=== PATIENT | female | born 1965 | race Caucasian/White ===

== ENCOUNTER → 2016-05-26 | Outpatient (CLI) | payer OTHER ==
[2016-05-26 14:34] VITALS: BP 171/84; PULSE 99; RESP 16; TEMP 98
--- NOTE | 2016-05-26 15:25 | P.PN ---
Subjective This is follow-up visit for this patient with a history of severe and chronic low back pain secondary to lumbar degenerative disc disease, and right sacroiliitis, we have done interventional pain management injection, right sacroiliac joint steroid injection x 2 and she continued to have severe low back pain with radiation to the right buttock area, and is currently on pain medications 1-motrin 800 mg every 8 hours 2- [place] 5/325 every 8 hours 3- amitriptyline 25 mg daily at bedtime Patient denies any side effects of the medication, denies excessive drowsiness or sleepiness, denies suicidal ideation, and reports that the current pain medication is NOT helping To control the pain and improve activity of daily living Patient had a new MRI done 10/24/2015 and this showed that patient had bulging disc at the L4 5 and mild disc desiccation Physical Examinations : 1-Constitutiona : Cooperative , not in acute distress . 2-HEENT : nech ; supple , no Lymphadenopathy , no Thyromegaly , normal thyroid size . eyes : no ptosis , no icterus, no photophobia . ENT : normal of hearing , normal oropharynx , no Thrush . 3- Respiratory : Chest clear to auscultations Bilaterally , no wheezing , no Rhonchi . 4- Cardiovascular : regular rate and rhythem , S1 , S2 , no S3 , no S4. 5- Gastrointestinal : abdomen soft no tenderness , bowel sounds positive all four quadrents , no organomegally . 6- Genitourinary : Defferred . 7- neurologic : Cranial nerve II to XII intact , no focal neurological deffecit . 8-psychatric : alert , oriented X 3 , appropriate affect , intact judgment and insight . 9-Lymphatic : no Lymphadenopathy . 10- musculoskeltal : exams of the Lumber spine = motor strength lower extremities ,thigh and legs .5/5 deep tendon reflexes : normal Knee Jerk , normal ankle Jerk . lumber facet Loading Test positive strait leg raising test positive at 30 degree RT Fabere test positive RT and Negative LT . Range of motion: Range of motion in flexion of the lumbar spine 30 degrees Range of motion range of motion of extension of the lumbar spine 10 Sever tenderness over the Sacroiliac joint on the Right , and negative on the Left side Assessment and plan = - Chronic low back pain secondary to lumbar degenerative disc disease , and right sacroiliitis Patient had 2 sacroiliac joint steroid injections without any significant benefit - diagnoses, prognosis, and treatment options including but not limited to physical therapy, surgical interventions, interventional therapies and medication management including narcotics and adjuvant medication were discussed with the patient and all questions answered to the patient's satisfaction. -medication refile = patient getting prescription refill from her primary care , and I wrote a new prescription for Voltaren gel to be applied to the buttock area twice daily -procedure= patient could benefit from lumbar epidural steroid injections which will be done under fluoroscopy guidance , the same time we can toward right sacroiliac joint steroid injection , to maximize the benefit and hopefully patient had the best outcome , procedure and its risk and benefits discussed and explained to the patient and she agreed with the procedure Objective - Vital Signs Vital signs: Vital Signs Temp 98.0 F 05/26/16 14:21 Pulse 99 05/26/16 14:21 Resp 16 05/26/16 14:21 BP 171/84 05/26/16 14:21 Pulse Ox 97 05/26/16 14:21 Intake & Output 05/25/16 05/26/16 05/26/16 18:59 06:59 18:59 Weight 95.708 kg
== END | disposition home or self-care (01) ==
LOC: PNWHC3 14:08
PROVIDERS: ATTEND Specialist
DX: M51.36 Other intervertebral disc degeneration, lumbar region (principal); M46.1 Sacroiliitis, not elsewhere classified; Z79.899 Other long term (current) drug therapy
CPT/HCPCS: 99211

== ENCOUNTER 2016-06-19 12:18 | Day surgery (SDC) | payer OTHER ==
[2016-06-18 13:19] VITALS: BMI 40.0
[~2016-06-19 12:18] MED LIST: LACTATED RINGERS 1,000 ML IV SCH
[2016-06-19 13:22] VITALS: TEMP 97.5
[2016-06-19] MEDS ORDERED: LIDOCAINE 1% 20 ML VIAL (10MG/ML) FOR IV START INTRADERMA ONE (13:34)
[2016-06-19] MEDS ORDERED: IOHEXOL 180 MG/ML 1 ML ML ONE (13:45)
[2016-06-19] MEDS ORDERED: fentaNYL (PF) 50 MCG/ML 2 ML AMP ONE (13:45)
[2016-06-19] MEDS ORDERED: TRIAMCINOLONE ACETONIDE 40 MG/ML 1 ML VIAL ONE (13:45)
[2016-06-19] MEDS ORDERED: MIDAZOLAM 2 MG/2 ML VIAL ONE (13:45)
--- NOTE | 2016-06-19 13:58 | P.PCN ---
Date of Procedure: 06/19/16 Surgeon: Thaddeus Olguin Pathology: none sent Condition: stable Disposition: PACU Description of Procedure: PREOPERATIVE DIAGNOSIS: 1-Lumbar radiculitis. POSTOPERATIVE DIAGNOSIS: 1-Lumbar radiculitis. PROCEDURE 1. Lumbar epidural steroid injection under fluoroscopic guidance at the L4-L5 level. 2. Lumbar epidurogram. ANESTHESIA: Local with 1% lidocaine; IV sedation with Versed/fentanyl. EBL: Minimal PROCEDURE INDICATION: The patient with low back pain and radiculitis symptoms unresponsive to conservative treatment. Fluoroscopy was used to optimize visualization of the needle placement and to maximize safety. No use of blood thinners. PROCEDURE DESCRIPTION / TECHNIQUE: The patient was seen and identified in the preoperative area. Risks, benefits, complications, and alternatives were discussed with the patient, including but not limited to bleeding, infection, nerve damage, allergic reactions to medications, and incomplete pain relief. The patient agreed to proceed with the procedure and signed the consent after all questions were answered. IV was started, and vital signs were stable. Patient was taken to the OR and time out was completed to confirm patient position, procedure, laterality of pain, and allergies. The patient was placed in the prone position on procedure table and a pillow was placed under the abdomen to reduce lumbar lordosis. The lumbosacral area was prepped and draped in the usual sterile fashion. Critical pause was taken. Vital signs were closely monitored during the procedure. Conscious sedation was used during the procedure to decrease patients anxiety. Using anterior-posterior fluoroscopy, the L4-L5 interlaminar space was identified and the skin over this site was marked and then infiltrated with 1% lidocaine subcutaneously. Subsequently, a 20-gauge Tuohy epidural needle was inserted and advanced toward the epidural space using the Loss of resistance technique and guided by AP and lateral fluoroscopy. The correct needle position in the epidural space was verified with the injection of 2 mL of the water soluble contrast dye Omnipaque 300 contrast and observing an excellent epidurogram with the epidural spread of the dye, after negative aspiration for blood and CSF and in the absence of paresthesias. Again after negative aspiration, a 8 ml mixture containing 80 mg of Kenalog and 4 ml of preservative free Normal Saline, and 2 ml of preservative free lidocaine 1% solution was injected and a washout of epidurogram was seen. Needle was withdrawn intact, skin was cleansed, and bandages were applied. COMPLICATIONS: None COMMENTS: DISPOSITION / PLANS: The patient was placed in a supine position and transferred to the recovery area in a stable condition for observation. There was no evidence of lower extremity motor or sensory deficit after the procedure. Patient was discharged from the recovery room after meeting discharge criteria. Home discharge instructions were given to the patient by the staff. The patient was reexamined prior to discharge. The patient will schedule a follow up procedure in 4-6 weeks.
[2016-06-19 14:08] VITALS: RESP 18
--- NOTE | 2016-06-19 14:13 | FL ---
Fluoroscopy INDICATION: Pain FINDINGS: Fluoroscopy time: 5 seconds. Images obtained: 3. IMPRESSIONS: 1. Documentation of fluoroscopy.
[2016-06-19] MEDS ORDERED: IV FLUID CONTINUATION 1,000 ML IV ONE (14:16)
[2016-06-19 14:25] VITALS: BP 130/84; PULSE 78
== END 2016-06-19 14:47 | disposition home or self-care (01) ==
LOC: ORPAIN 12:18
PROVIDERS: ATTEND Anesthesiology
DX: G89.29 Other chronic pain (principal); M54.16 Radiculopathy, lumbar region; F41.9 Anxiety disorder, unspecified; R51 Headache; Z88.8 Allergy status to other drugs, medicaments and biological substances; Z79.1 Long term (current) use of non-steroidal anti-inflammatories (NSAID); Z79.899 Other long term (current) drug therapy
CPT/HCPCS: 62323; J2250; J3301; Q9965; J3010

== ENCOUNTER 2016-07-28 09:01 | Day surgery (SDC) | payer OTHER ==
[2016-07-25 11:42] VITALS: BMI 38.5
[2016-07-28] MEDS ORDERED: LIDOCAINE 1% 20 ML VIAL (10MG/ML) FOR IV START INTRADERMA ONE (09:22)
[2016-07-28 09:28] VITALS: PULSE 69; RESP 16; TEMP 98.3
[2016-07-28] MEDS ORDERED: IOHEXOL 180 MG/ML 1 ML ML ONE (10:04)
[2016-07-28] MEDS ORDERED: BUPIVACAINE (PF) 0.25% 30 ML VIAL ONE (10:04)
[2016-07-28] MEDS ORDERED: MIDAZOLAM 2 MG/2 ML VIAL ONE (10:04)
[2016-07-28] MEDS ORDERED: fentaNYL (PF) 50 MCG/ML 2 ML AMP ONE (10:04)
[2016-07-28] MEDS ORDERED: TRIAMCINOLONE ACETONIDE 40 MG/ML 1 ML VIAL ONE (10:04)
--- NOTE | 2016-07-28 10:22 | P.PCN ---
Date of Procedure: 07/28/16 Preoperative Diagnosis: Right lumbar radiculopathy Postoperative Diagnosis: Same as above Procedure(s) Performed: Lumbar epidural steroid injection under fluoroscopic guidance Anesthesia: MAC Surgeon: Katherine Pedroza Pathology: none sent Condition: stable Disposition: PACU Description of Procedure: The patient was seen in preop holding area consent was obtained then she was brought into the procedure room and placed in prone position. Skin was prepped with Betadine 3 and draped in a sterile manner. Lidocaine 1% was used to numb the skin up at the target point that was at the L4 5 level in the right paramedian approach. I used 20-gauge 3-1/2 inch Touhy epidural needle with loss -of-resistance to air to identify the epidural space. There was positive loss- of-resistance to air at about 8 cm from skin negative aspiration for any CSF or blood negative paresthesia I then injected 1 mL of Omnipaque which showed typical epidurogram on the AP and lateral views of fluoroscopy after that I injected 40 mg of Kenalog plus 2 MLS of Marcaine 0.25% +4 MLS of preservative free normal saline to a total volume of 7 MLS in epidural space. Patient tolerated procedure well. We used 2 milligrams of IV Versed and 100 g of IV fentanyl for sedation.
[2016-07-28] MEDS ORDERED: IV FLUID CONTINUATION 1,000 ML IV ONE (10:34)
--- NOTE | 2016-07-28 10:37 | FL ---
FLUOROSCOPY 4 seconds of fluoroscopy time were utilized during Pain Injection. 2 images document the procedure.
[2016-07-28 10:52] VITALS: BP 109/74
== END 2016-07-28 11:08 | disposition home or self-care (01) ==
LOC: ORPAIN 09:01
PROVIDERS: ATTEND Anesthesiology
DX: M54.16 Radiculopathy, lumbar region (principal); Z88.8 Allergy status to other drugs, medicaments and biological substances
CPT/HCPCS: 62323; 99152; J2250; J3301; Q9965; J3010

== ENCOUNTER 2016-09-04 07:32 | Day surgery (SDC) | payer OTHER ==
[2016-09-03 10:10] VITALS: BMI 39.1
[2016-09-04] MEDS ORDERED: LIDOCAINE 1% 20 ML VIAL (10MG/ML) FOR IV START INTRADERMA ONE (07:50)
[2016-09-04 08:02] VITALS: RESP 16; TEMP 97.3
[2016-09-04] MEDS ORDERED: fentaNYL (PF) 50 MCG/ML 2 ML AMP ONE (08:41)
[2016-09-04] MEDS ORDERED: IOHEXOL 180 MG/ML 1 ML ML ONE (08:41)
[2016-09-04] MEDS ORDERED: MIDAZOLAM 2 MG/2 ML VIAL ONE (08:41)
[2016-09-04] MEDS ORDERED: TRIAMCINOLONE ACETONIDE 40 MG/ML 1 ML VIAL ONE (08:41)
--- NOTE | 2016-09-04 08:57 | P.PCN ---
Date of Procedure: 09/04/16 Procedure(s) Performed: PREOPERATIVE DIAGNOSIS: 1- Lumbar herniated Disc Diseases 2-Lumbar radiculopathy. POSTOPERATIVE DIAGNOSIS: Same as preoperative diagnoses. PROCEDURE 1. Lumbar epidural steroid injection under fluoroscopic guidance at the L4-5 level. 2. Lumbar epidurogram. ANESTHESIA: Local with 1% lidocaine 3 ml and IV sedation with Versed 2 mg , and fentanyle 100 Mcg EBL: Minimal PROCEDURE INDICATION: The patient with low back pain and radiculitis symptoms unresponsive to conservative treatment. Fluoroscopy was used to optimize visualization of the needle placement and to maximize safety. PROCEDURE DESCRIPTION / TECHNIQUE: The patient was seen and identified in the preoperative area. Risks, benefits , complications including but not limited to infections ,bleeding ,allergic reaction to the medications ,nerve damage and not complete pain releife , and alternatives were discussed with the patient. The patient agreed to proceed with the procedure and signed the consent. IV was started, and vital signs were stable. Patient was taken to the OR and time out was completed. The patient was placed in the prone position on procedure table and a pillow was placed under the abdomen to reduce lumbar lordosis. The lumbosacral area was prepped and draped in the usual sterile fashion.ere closely monitored during the procedure. Conscious sedation was used during the procedure to decrease patients anxiety. Vital signs was monitered during the entire procedure. Using anterior-posterior fluoroscopy, the L4-5 interlaminar space was identified and the skin over this site was marked and then infiltrated with 1% lidocaine subcutaneously. Subsequently, a 20-gauge Tuohy epidural needle was inserted and advanced toward the epidural space using the ``Loss of resistance technique and guided by AP and lateral fluoroscopy. The correct needle position in the epidural space was verified with the injection of 2 mL of the water soluble contrast dye Omnipaque 180 contrast and observing an excellent epidurogram with the epidural spread of the dye, after negative aspiration for blood and CSF and in the absence of paresthesias. Again after negative aspiration, a 6 ml mixture containing 80 mg of Kenalog and 2 ml of preservative free Normal Saline, and 2 ml of preservative free lidocaine 1% solution was injected and a washout of epidurogram was seen. Needle was withdrawn intact, skin was cleansed, and bandages were applied. COMPLICATIONS: None DISPOSITION / PLANS: The patient was placed in a supine position and transferred to the recovery area in a stable condition for observation. There was no evidence of lower extremity motor or sensory deficit after the procedure. Patient was discharged from the recovery room after meeting discharge criteria. Home discharge instructions were given to the patient by the staff. The patient was reexamined prior to discharge. The patient will schedule a follow up in the clinic in 2-4 weeks.
[2016-09-04] MEDS ORDERED: IV FLUID CONTINUATION 1,000 ML IV ONE (09:00)
--- NOTE | 2016-09-04 09:02 | FL ---
EXAMINATION TYPE: FL guided pain mgmt statistic DATE OF EXAM: 09/04/2016 8:57 AM HISTORY: Pain LUMBAR EPIDURAL INJECTION, FLUORO TIME 3 SEC, , 1 IMAGE SCANNED
[2016-09-04 09:30] VITALS: BP 110/70; PULSE 67
== END 2016-09-04 09:49 | disposition home or self-care (01) ==
LOC: ORPAIN 07:32
PROVIDERS: ATTEND Specialist
DX: M51.16 Intervertebral disc disorders with radiculopathy, lumbar region (principal); Z88.8 Allergy status to other drugs, medicaments and biological substances
CPT/HCPCS: 62323; J2250; J3301; Q9965; J3010

== ENCOUNTER → 2016-12-09 | Outpatient (CLI) | payer OTHER ==
[2016-12-09 14:20] VITALS: BP 132/73; PULSE 75; RESP 16; TEMP 97.7
--- NOTE | 2016-12-09 14:39 | P.PN ---
Progress Note - Text This is a 51-year-old female with history of axial lower back pain with mild pain in the left lower extremity. The patient failed to get a prolonged relief of her pain after both sacroiliac joint steroid injection and lumbar epidural steroid injection. 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 She uses Tylenol and ibuprofen to help her with the pain and occasionally [place] at night. The pain is starting to affect her daily activities and her work especially she has to constantly change positions to relieve this pain. The patient has lumbar spondylosis without myelopathy and morbid obesity. I will schedule the patient to have lumbar medial branch block under fluoroscopic guidance without steroids. if She gets at least 50% of pain relief for a few hours right after the procedure then we will plan on doing lumbar medial branch radio frequency ablation in the future.
== END ==
LOC: PNWHC3 13:48
PROVIDERS: ATTEND Anesthesiology
DX: M54.5 Low back pain (principal); M79.605 Pain in left leg
CPT/HCPCS: 99211

== ENCOUNTER 2016-12-18 08:27 | Day surgery (SDC) | payer OTHER ==
[2016-12-17 08:53] VITALS: BMI 40.0
[2016-12-18 08:53] VITALS: TEMP 98.1
[2016-12-18] MEDS ORDERED: LIDOCAINE 1% 20 ML VIAL (10MG/ML) FOR IV START INTRADERMA ONE (09:03)
--- NOTE | 2016-12-18 09:39 | P.PCN ---
Date of Procedure: 12/18/16 Preoperative Diagnosis: Lumbar spondylosis without myelopathy Morbid obesity Postoperative Diagnosis: Same as above Procedure(s) Performed: Lumbar bilateral medial branch block under fluoroscopic guidance for levels L4-5 , and L5-S1 Implants: Anesthesia: other (Moderate conscious sedation with IV Versed only) Surgeon: Katherine Pedroza Pathology: none sent Condition: stable Disposition: PACU Indications for Procedure: Operative Findings: Description of Procedure: The patient was seen in preoperative holding area consent was obtained then she was brought into the procedure room and placed in prone position. Skin was prepped with ChloraPrep and draped in a sterile manner. Lidocaine 1% was used to numb the skin up at the target points that were chosen as follows: fot the L5 -S1 level which corresponds to the dorsal ramus of L5 the target points were at the superior medial aspect of the sacral ala on each side of the spine on the AP view of fluoroscopy, and for theL3 and L4 medial branches the target points were at the connection between the transverse process and the superior articular process of L4 and L5 vertebra on the oblique views of fluoroscopy. I Used 22-gauge 7 inch Quincke spinal needles for this procedure and after contacting bone at the target points mentioned above I injected 1 mL of Marcaine 0.5%. No steroids and no IV fentanyl were used for this procedure. Patient tolerated procedure well
--- NOTE | 2016-12-18 09:50 | FL ---
Fluoroscopy HISTORY: Pain 9 seconds fluoroscopy time supplied to the referring clinician. 3 intraoperative C-arm images docume nt the procedure. See dictated report from anesthesia.
[2016-12-18 10:10] VITALS: BP 139/80; PULSE 76; RESP 17
[2016-12-18] MEDS ORDERED: IV FLUID CONTINUATION 1,000 ML IV ONE (10:15)
== END 2016-12-18 10:27 | disposition home or self-care (01) ==
LOC: ORPAIN 08:27
PROVIDERS: ATTEND Anesthesiology
DX: M47.816 Spondylosis without myelopathy or radiculopathy, lumbar region (principal); E66.01 Morbid (severe) obesity due to excess calories; Z68.41 Body mass index [BMI] 40.0-44.9, adult; Z88.8 Allergy status to other drugs, medicaments and biological substances
CPT/HCPCS: 99152; 64493; 64494; J2250

== ENCOUNTER 2017-01-26 06:34 | Day surgery (SDC) | payer OTHER ==
[2017-01-26 06:47] VITALS: RESP 16; TEMP 98.7
[2017-01-26] MEDS ORDERED: LIDOCAINE 1% 20 ML VIAL (10MG/ML) FOR IV START INTRADERMA ONE (06:47)
[2017-01-26] MEDS ORDERED: LACTATED RINGERS 1,000 ML IV ONE (06:48)
[2017-01-26] MEDS ORDERED: LACTATED RINGERS 1,000 ML IV SCH (07:15)
--- NOTE | 2017-01-26 07:56 | FL ---
EXAMINATION TYPE: FL guided pain mgmt statistic DATE OF EXAM: 01/26/2017 HISTORY: Pain 11 SEC FLUORO, 6 IMAGES SCANNED INTO PACS
[2017-01-26 08:31] VITALS: BP 122/80; PULSE 83
--- NOTE | 2017-01-26 09:00 | P.PCN ---
Date of Procedure: 01/26/17 Surgeon: Thaddeus Olguin Pathology: none sent Condition: stable Disposition: PACU Description of Procedure: PREOPERATIVE DIAGNOSIS: L3-L4, L4-L5, and L5-S1 spondylosis without myelopathy and facet arthropathy. POSTOPERATIVE DIAGNOSIS: L3-L4, L4-L5, and L5-S1 spondylosis without myelopathy and facet arthropathy. PROCEDURE DESCRIPTION: Patient presents for L3-L4, L4-L5 and L5-S1 diagnostic medial branch blocks under fluoroscopic guidance. The procedure is performed using fluoroscopic guidance during needle placement to assure proper position and maximize safety. ANESTHESIA: Local with 1% lidocaine; conscious sedation EBL: Minimal PROCEDURE INDICATION: Patient with lumbar facet arthropathy signs and symptoms, here for diagnostic medial branch block. Pt does not take any blood thinning medications. Two weeks' relief from MBB #1 > 50% (done without steroids). PROCEDURE DESCRIPTION: The patient was seen and identified in the preoperative area. Risks, benefits, complications, and alternatives were discussed with the patient (including but not limited to incomplete pain relief, bleeding, infection, nerve damage, and allergies to medications), the patient agreed to proceed with the procedure and signed the consent after all questions were answered. Patient was taken to the OR and time out was completed to verify proper patient, position, laterality of pain, and allergies. Pt was placed in the prone position and a pillow was placed under the abdomen to reduce lumbar lordosis. The lumbosacral area was prepped and draped in the usual sterile fashion. Using oblique fluoroscopy, the eye of the "Donnell dog" of right L4 vertebral body, which corresponds to the path of the medial branch originating from the level above, which is L3 in this case, was identified. Subsequently, a 22-gauge 3.5-inch spinal needle was inserted under fluoroscopic guidance toward the eye of the "Donnell dog" of the right L4 vertebral body, corresponding to the junction of the superior articular process and the transverse process of the pedicle of the same level. After needle tip confirmation on lateral view and after negative aspiration for CSF and blood and without paresthesias, 1 mL of a 6 ml solution of 0.5% preservative-free bupivacaine and 40 mg Kenalog was injected. Subsequently the needle was withdrawn intact and the same procedure was repeated for the right L4, right L5, left L3, left L4, and left L5 medial branches which together with right L3 medial branch correspond to the sensory innervation of the bilateral L3-L4, L4-L5, and L5-S1 facet joints. Needle was withdrawn intact after each injection. At the end of the procedure, the skin was cleansed and bandages were applied. COMPLICATIONS: None. DISPOSITION/PLAN: The patient taken to the recovery area after the procedure in a stable condition for observation. Patient was reexamined prior to discharge and there were no issues. Patient was discharged home, accompanied by an adult, after meeting discharged criteria. Discharge instructions were give to the patient by the staff. Patient was specifically instructed not to drive today and to rest for the rest of the day. Right lumbar RFA next.
== END 2017-01-26 08:41 | disposition home or self-care (01) ==
LOC: ORPAIN 06:34
PROVIDERS: ATTEND Anesthesiology
DX: G89.29 Other chronic pain (principal); M47.816 Spondylosis without myelopathy or radiculopathy, lumbar region; M47.817 Spondylosis without myelopathy or radiculopathy, lumbosacral region; M46.96 Unspecified inflammatory spondylopathy, lumbar region; I10 Essential (primary) hypertension; Z88.8 Allergy status to other drugs, medicaments and biological substances; Z79.1 Long term (current) use of non-steroidal anti-inflammatories (NSAID); Z79.899 Other long term (current) drug therapy
CPT/HCPCS: 64493; 64494; 64495; 99152; J2250; J3301

== ENCOUNTER 2017-02-19 06:31 | Day surgery (SDC) | payer OTHER ==
[2017-02-16 14:40] VITALS: BMI 38.9
[2017-02-19 07:18] VITALS: RESP 16; TEMP 97
[2017-02-19] MEDS ORDERED: LIDOCAINE 1% 20 ML VIAL (10MG/ML) FOR IV START INTRADERMA ONE (07:22)
--- NOTE | 2017-02-19 08:03 | P.PCN ---
Date of Procedure: 02/19/17 Procedure(s) Performed: PREOPERATIVE DIAGNOSIS: 1-Lumbar Spondylosis with Facet Arthropathy without myelopathy. POSTOPERATIVE DIAGNOSIS: 1- Lumbar Spondylosis with Facet Arthropathy without myelopathy. PROCEDURES : Right Radiofrequency thermocoagulation, L3-L4, L4-L5, and L5-S1 medial branch, with fluoroscopic guidance ANESTHESIA: IV sedation with versed 2 mg and fentaneyl 100 mcg and local infiltration with lidocaine 1% 6 ml EBL: Minimal PROCEDURE INDICATION: The patient with low back pain secondary to lumbar facet arthropathy who had more than 50% relief of her pain with previous diagnostic lumbar medial branch block with bupivacaine. PROCEDURE DESCRIPTION / TECHNIQUE: The patient was seen and identified in the preoperative area. Risks, benefits, complications, including but not limited to risk of infection ,bleeding , allergic reactions to the medications and no complete pain releife , and alternatives were discussed with the patient, the patient agreed to proceed with the procedure and signed the consent. IV was started. Vital signs remained stable throughout the procedure. Patient was taken to the OR and time out was completed. The patient was placed in the prone position on the procedure table. The lumber area was prepped and draped in the usual sterile fashion. . Vital signs were closely monitored during the procedure .IV sedation was used during the procedure to decrease patients anxiety. Using AP and then oblique fluoroscopy, the ``eye of the Donnell dog corresponding to the connection between the superior and transverse articular processes of right L3, L4, and L5 were identified, marked, and localized with 1 % lidocaine. Subsequently, a 18 -hc radiofrequency cannula with a 10- mm active tip was advanced guided by fluoroscopy to each of the ``eyes of the Donnell dog at right L3, L4, and L5. Each site then underwent sensory testing at 50 Hz and 0 to 1 volt and motor testing at 2.5 Hz and 0 to 3 volt with local stimulation, but no radicular symptoms down the legs. Thereafter the right L3-4, L4-5, and L5-S1 sites underwent radiofrequency thermocoagulation at 80 degrees celsius for 90 seconds after injecting 0.5 ml of PF lidocaine 1%. then After the thermocoagulation done , 1 ml of the block solution containing Kenalog 40 mg and 3 ml of marain 0.5% was injected at the right L3- 4 , L4-5 , and L5-S1, levels after negative aspiration of CSF and blood and with no paresthesias. Cannulas were retracted while injecting lidocaine 1% until the needle is out. At the end of the procedure, the skin was cleansed and bandages were applied. COMPLICATIONS: No acute complications. DISPOSITION / PLANS: The patient was placed in a supine position and transferred to the recovery area in a stable condition for observation and was discharged from the recovery room after meeting discharge criteria. Home discharge instructions given to the patient by the staff. The patient was reexamined prior to discharge. The patient will schedule a follow up in the clinic in 2-4 weeks.
[2017-02-19 08:13] VITALS: PULSE 75
[2017-02-19] MEDS ORDERED: IV FLUID CONTINUATION 1,000 ML IV ONE (08:14)
[2017-02-19 08:24] VITALS: BP 130/93
--- NOTE | 2017-02-19 08:51 | FL ---
Fluoroscopy INDICATION: Pain FINDINGS: Fluoroscopy time: 18 seconds. Images obtained: 3. IMPRESSIONS: 1. Documentation of fluoroscopy.
== END 2017-02-19 08:55 | disposition home or self-care (01) ==
LOC: ORPAIN 06:31
PROVIDERS: ATTEND Specialist
DX: M47.816 Spondylosis without myelopathy or radiculopathy, lumbar region (principal); M46.96 Unspecified inflammatory spondylopathy, lumbar region; I10 Essential (primary) hypertension; Z88.8 Allergy status to other drugs, medicaments and biological substances
CPT/HCPCS: 64635; 64636 ×2; J2250; J3301; J3010; 99152; 99153

== ENCOUNTER → 2017-05-06 | Outpatient (CLI) | payer OTHER ==
--- NOTE | 2017-05-06 23:18 | MR ---
EXAMINATION TYPE: MR lumbar spine wo con DATE OF EXAM: 05/06/2017 COMPARISON: 10/24/2015 HISTORY: low back pain with numbness in left leg, prev. MRI on PACS TECHNIQUE: Multiplanar, multisequence images of the lumbar spine were acquired. The lumbar vertebra have normal alignment. There is slight decreased signal in the disc at L4-5. Ther e is no significant disc space narrowing. There is no compression fracture. The neural foramina are f airly well-maintained. The posterior elements are intact. Sacroiliac joints appear intact. There is n o paraspinal mass. There is no spinal stenosis. There is some hypertrophic facet arthropathy at L4-5 with fluid in the facet joints. There is some mild lateral recess stenosis at L4-5. IMPRESSION: There is mild facet arthropathy at L4-5 with mild lateral recess stenosis that has progressed slightl y compared to old MR scan. No spinal stenosis. No lumbar disc herniation.
== END ==
LOC: RADMRIMAIN 20:38
PROVIDERS: ATTEND Anesthesiology
DX: M48.061 Spinal stenosis, lumbar region without neurogenic claudication (principal); M46.86 Other specified inflammatory spondylopathies, lumbar region
CPT/HCPCS: 72148

== ENCOUNTER → 2017-05-07 | Day surgery (SDC) | payer OTHER ==
[2017-03-24 08:28] VITALS: BMI 39.4
[~2017-05-07] MED LIST changes: +IV FLUID CONTINUATION 200 ML IV ONE; +LACTATED RINGERS 1,000 ML IV ONE; +LIDOCAINE 1% 20 ML VIAL (10MG/ML) FOR IV START INTRADERMA ONE
--- NOTE | 2017-05-07 11:30 | P.PCN ---
Date of Procedure: 05/07/17 Procedure(s) Performed: PREOPERATIVE DIAGNOSIS: 1-Lumbar Spondylosis with Facet Arthropathy without myelopathy. 2- Lumber degenerative disc disease POSTOPERATIVE DIAGNOSIS: 1- Lumbar Spondylosis with Facet Arthropathy without myelopathy. 2- Lumber degenerative disc disease PROCEDURES : Left Radiofrequency thermocoagulation, L3-L4, L4-L5, and L5-S1 medial branch, with fluoroscopic guidance ANESTHESIA: Moderate sedation with intravenous versed 2 mg and fentaneyl 50 mcg and local infiltration with lidocaine 1% 3 ml EBL: Minimal PROCEDURE INDICATION: The patient with low back pain secondary to lumbar facet arthropathy who had more than 50% relief of her pain with previous diagnostic lumbar medial branch block with bupivacaine. PROCEDURE DESCRIPTION / TECHNIQUE: The patient was seen and identified in the preoperative area. Risks, benefits, complications, including but not limited to risk of infection ,bleeding , allergic reactions to the medications and no complete pain releife , and alternatives were discussed with the patient, the patient agreed to proceed with the procedure and signed the consent. IV was started. Vital signs remained stable throughout the procedure. Patient was taken to the OR and time out was completed. The patient was placed in the prone position on the procedure table. The lumber area was prepped and draped in the usual sterile fashion. . Vital signs were closely monitored during the procedure .IV sedation was used during the procedure to decrease patients anxiety. Using AP and then oblique fluoroscopy, the ``eye of the Donnell dog corresponding to the connection between the superior and transverse articular processes of left L3, L4, and L5 were identified, marked, and localized with 1 % lidocaine. Subsequently, a [id number] radiofrequency cannula with a 10- mm active tip was advanced guided by fluoroscopy to each of the ``eyes of the Donnell dog at left L3, L4, and L5. Each site then underwent sensory testing at 50 Hz and 0 to 1 volt and motor testing at 2.5 Hz and 0 to 3 volt with local stimulation, but no radicular symptoms down the legs. Thereafter the left L3-4, L4-5, and L5-S1 sites underwent radiofrequency thermocoagulation at 80 degrees celsius for 90 seconds after injecting 0.5 ml of PF lidocaine 1%. then After the thermocoagulation done , 1 ml of the block solution containing Kenalog 40 mg and 3 ml of marain 0.5% was injected at the left L3-4 , L4-5 , and L5-S1, levels after negative aspiration of CSF and blood and with no paresthesias. Cannulas were retracted while injecting lidocaine 1% until the needle is out. At the end of the procedure, the skin was cleansed and bandages were applied. COMPLICATIONS: No acute complications. DISPOSITION / PLANS: The patient was placed in a supine position and transferred to the recovery area in a stable condition for observation and was discharged from the recovery room after meeting discharge criteria. Home discharge instructions given to the patient by the staff. The patient was reexamined prior to discharge. The patient will schedule a follow up in the clinic in 2-4 weeks.
--- NOTE | 2017-05-07 11:49 | FL ---
EXAMINATION TYPE: FL guided pain mgmt statistic DATE OF EXAM: 05/07/2017 COMPARISON: NONE HISTORY: Back pain TECHNIQUE: Fluoroscopy. FINDINGS/IMPRESSION: Fluoroscopic guidance was provided during procedure performed by Dr. Nixon. A total of 10 seconds of fluoroscopic time was utilized during the procedure and 3 spot images was a cquired demonstrating localization at multiple lumbar vertebral levels.
[2017-05-07 16:33] VITALS: BP 130/84; PULSE 68; RESP 18; TEMP 98.1
== END | disposition home or self-care (01) ==
LOC: ORPAIN 09:07
PROVIDERS: ATTEND Specialist
DX: M51.36 Other intervertebral disc degeneration, lumbar region (principal); M47.816 Spondylosis without myelopathy or radiculopathy, lumbar region; M46.96 Unspecified inflammatory spondylopathy, lumbar region; Z88.8 Allergy status to other drugs, medicaments and biological substances; Z86.79 Personal history of other diseases of the circulatory system
CPT/HCPCS: 64635; 64636 ×2; J2250; J1100; J3010; 99152

== ENCOUNTER → 2017-05-28 | Outpatient (CLI) | payer OTHER ==
[2017-05-28 11:53] VITALS: BP 140/94; PULSE 83; RESP 18
--- NOTE | 2017-05-28 12:31 | P.PN ---
Progress Note - Text Progress Note Date: 05/28/17 Patient returns for followup for chronic back pain with radiation to the legs. Patient recently underwent bilateral lumbar RFA, which gave her relief only for 2-3 months on the right and the left has not helped her significantly whatsoever. Patient continues on Motrin and Tylenol arthritis medications for pain with good relief. Patient denies adverse drug effects from medications. Today, pt denies new-onset weakness, bowel/bladder incontinence, or any other signs or symptoms of cauda equina syndrome. There are no signs of acute intoxication, and no indications of medication diversion or overuse. In addition to above, 13-point review of systems is also negative for chest pain , shortness of breath, changes in vision, changes in hearing, new onset weakness , abdominal pain, diarrhea, extreme fatigue, malaise, fever, skin changes, homicidal or suicidal ideation, or bowel or bladder incontinence. Vital Signs: Reviewed in EMR Gen: WDWN, AAOx3, NAD HEENT: NCAT, EOMI, hearing grossly normal Pulm: resp unlabored Abd: soft, NT, ND Neck: supple, trachea midline ROM in flexion lumbar spine: reduced ROM in extension lumbar spine: reduced Lumbar paravertebral tenderness: + Facet loading: + bilateral, L > R SI joint tenderness: + R > L Riaz's test: + R > L Straight leg raise: + LLE at 15 degrees Neuro: CN II-XII grossly intact, muscle strength lower extremities PRESERVED Imaging: Reviewed in EMR Assessment: 1. lumbar radiculitis 2. lumbar spondylosis without myelopathy 3. chronic pain syndrome Plan: 1. Explanation: Opioid and psychological risk scores were reviewed. Diagnoses , prognoses, and multiple treatment options including but not limited to physical therapy, interventional therapies, adjuvant medical therapies, narcotic medication therapies, and surgery were discussed with the patient and all questions were answered to the patient's satisfaction. 2. Opioid agreement: Patient has previously signed narcotic agreement, and was orally counseled to not overuse, abuse, divert, or cell medications, and to take them as prescribed by only 1 healthcare provider. The patient was also counseled to store opioid medications in a safe and preferably locked location. Patient was also counseled against driving or operating heavy equipment while using narcotic medications and also to not use alcohol or any illicit or recreational drugs. The patient verbalized understanding that lack of compliance with any of the above and likely result in failure to renew narcotic prescriptions, possible discharge from the clinic, and possible legal ramifications thereafter if indicated. 3. Counseling: The patient was counseled extensively on BODY MASS INDEX, EXERCISE. Specifically, the patient was instructed regarding the importance of weight control, and exercise in the context of both chronic pain and overall health. 4. Procedures: none for now, patient to consider SCS trial 5. Consultations: None 6. Investigations: None 7. Medications: none prescribed 8. Disposition: f/u for re-eval in 6 weeks after visit with Dr. Arias
== END | disposition home or self-care (01) ==
LOC: PNWHC3 11:33
PROVIDERS: ATTEND Anesthesiology
DX: G89.4 Chronic pain syndrome (principal); M54.9 Dorsalgia, unspecified; M47.26 Other spondylosis with radiculopathy, lumbar region; Z79.1 Long term (current) use of non-steroidal anti-inflammatories (NSAID); Z79.891 Long term (current) use of opiate analgesic
CPT/HCPCS: 99211

== ENCOUNTER → 2018-01-25 | Outpatient (CLI) | payer OTHER ==
[2018-01-25 16:44] LABS: Basophils # (A) 0.1 k/uL (0-0.2); Basophils % (A) 1 %; Eosinophils # (A) 0.2 k/uL (0-0.7); Eosinophils % (A) 3 %; HCT 43.6 % (34.0-46.0); HGB 14.3 gm/dL (11.4-16.0); Lymphocytes # (A) 2.1 k/uL (1.0-4.8); Lymphocytes % (A) 31 %; MCH 27.7 pg (25.0-35.0); MCHC 32.8 g/dL (31.0-37.0); MCV 84.5 fL (80.0-100.0); Mean Platelet Volume 6.7; Monocytes # (A) 0.4 k/uL (0-1.0); Monocytes % (A) 6 %; Neutrophils # (A) 3.8 k/uL (1.3-7.7); Neutrophils % (A) 56 %; Platelet Count 388 k/uL (150-450); RBC 5.16 m/uL (3.80-5.40); RDW 14.6 % (11.5-15.5); WBC 6.8 k/uL (3.8-10.6)
[2018-01-25 16:59] LABS: Amorphous Sediment,Urine Rare /hpf; Appearance,Urine Cloudy (Clear); Bacteria,Urine Rare /hpf; Bilirubin,Urine Negative (Negative); Blood,Urine Negative (Negative); Color,Urine Yellow; Glucose,Urine (UA) Negative (Negative); Ketones,Urine Negative (Negative); Leukocyte Esterase,Urine Negative (Negative); Nitrite,Urine Negative (Negative); Protein,Urine Negative (Negative); Specific Gravity,Urine 1.018 (1.001-1.035); Urobilinogen,Urine <2.0 mg/dL (<2.0); WBC,Urine 1 /hpf (0-5)
== END | disposition home or self-care (01) ==
LOC: LABWHC1 15:50
PROVIDERS: ATTEND Nurse Practitioner Family
DX: R19.7 Diarrhea, unspecified (principal)
CPT/HCPCS: 36415; 81001; 85025; 87045; 87046; 87324

== ENCOUNTER 2018-03-08 09:55 | Day surgery (SDC) | payer OTHER ==
[2018-03-03 12:50] VITALS: BMI 39.6
[~2018-03-08 09:55] MED LIST changes: -IV FLUID CONTINUATION 200 ML IV ONE; -LACTATED RINGERS 1,000 ML IV ONE; -LIDOCAINE 1% 20 ML VIAL (10MG/ML) FOR IV START INTRADERMA ONE; +LIDOCAINE 1% 20 ML VIAL (10MG/ML) FOR IV START INTRADERMA PRN
[2018-03-08 10:31] VITALS: RESP 16; TEMP 98.6
[2018-03-08] MEDS ORDERED: PROPOFOL 10 MG/ML 20 ML VIAL IV ONE (11:27)
--- NOTE | 2018-03-08 12:00 | P.PCN ---
Date of Procedure: 03/08/18 Procedure(s) Performed: Procedure: Colonoscopy and biopsy. Preoperative diagnosis: Chronic diarrhea. Postoperative diagnosis: 1. Diffuse diverticulosis with no evidence of acute diverticulitis, strictures, polyps, cancer or colitis. 2. Biopsies obtained from the right colon to rule out microscopic colitis. Preparation: HalfLytely prep. Sedation: Was provided by anesthesia. Brief clinical history: The patient is a 52-year-old female who is scheduled for this evaluation because of chronic diarrhea since the spring of this year. There is family history of polyps in her mother as well as history of colitis in her mother and history of colon cancer in her maternal grandmother. Prior to that, the patient used to have alternating constipation and diarrhea but is now having consistently diarrhea since September of this year. Procedure: With the patient on her left lateral decubitus position and after informed consent and adequate sedation, the perianal area was inspected and it did not show any fissures or fistulas. There were no masses felt on digital rectal examination. The Olympus CFQ 160L video colonoscope was then inserted in the rectum in the usual fashion and advanced to the cecum. I was not able to intubate the ileocecal valve to examine the terminal ileum. The colon appeared healthy with no edema, erythema, friability, ulceration, exudation or spontaneous bleeding. No polyps or tumors were seen. Significant diverticular disease was noted along the length of the bowel with no evidence of acute diverticulitis or strictures. I obtained biopsies from the right colon then I retroflexed the endoscope in the rectum before the endoscope was withdrawn. The patient tolerated the procedure well. Plan: The patient was reassured. Discussed dietary measures and symptomatic treatment. Will await biopsy results and make further recommendations. She will follow-up with you as planned and I would be happy to see in the office if her symptoms persist.
[2018-03-08 12:23] VITALS: BP 143/78; PULSE 75
== END 2018-03-08 12:44 | disposition home or self-care (01) ==
LOC: ORWHC2ENDO 09:55
DX: K57.30 Diverticulosis of large intestine without perforation or abscess without bleeding (principal); Z80.0 Family history of malignant neoplasm of digestive organs; Z83.71 Family history of colonic polyps; Z83.79 Family history of other diseases of the digestive system; I48.91 Unspecified atrial fibrillation; M54.9 Dorsalgia, unspecified; G43.909 Migraine, unspecified, not intractable, without status migrainosus; Z79.899 Other long term (current) drug therapy; Z88.8 Allergy status to other drugs, medicaments and biological substances
CPT/HCPCS: 88305; 45380; J2704

== ENCOUNTER → 2018-09-02 | Outpatient (CLI) | payer OTHER ==
--- NOTE | 2018-09-02 11:56 | BD ---
EXAMINATION TYPE: Axial Bone Density DATE OF EXAM: 09/02/2018 CLINICAL HISTORY: Postmenopausal female. Osteoporosis screening. Height: 61.5 Weight: 199 FRAX RISK QUESTIONS: Alcohol (3 or more units per day): no Family History (Parent hip fracture): no Glucocorticoids (More than 3mos): no (Ex: prednisone, prednisolone, methylprednisolone, dexamethasone, and hydrocortisone). History of Fracture in Adulthood: no Secondary Osteoporosis: 1. Type 1 Diabetes: no 2. Hyperthyroidism: no 3. Menopause before 45: YES 4. Malnutrition: no 5. Chronic liver disease: no Rheumatoid Arthritis: no Current Tobacco Use: no RISK FACTORS HISTORY OF: Surgery to Spine: yes, lower back When: September 2017 Family History of Osteoporosis: no Active: yes Diet low in dairy products/other sources of calcium: no Postmenopausal woman: yes Take estrogen and/or progesterone medications: Bio-Identical with Testosterone-one shot How long: history of hormonal contraceptives about 16 years Lost more than 2 inches in height since high school: no Frequent falls: no Poor Health: no Hyperparathyroidism: no Adrenal Insufficiency: no MEDICATIONS: Prednisone or other steroids: no Thyroid Medications: no Osteoporosis Medications:no Additional Medications: blood pressure med for irregular heartbeat Additional History: lower back injections under fluoroscopy, back surgery EXAM MEASUREMENTS: Bone mineral densitometry was performed using the [employer] System. Bone mineral density NOT measured about the Lumbar spine because of lower back surgery Bone mineral density about the R hip (g/cm2): 1.100 Bone mineral density about the L hip (g/cm2): 1.042 T Score values are as follows: -----R Neck: 0.4 -----L Neck: 0.0 -----R Total: 1.1 -----L Total: 1.4 Bone mineral density BASELINE Bone mineral density about the L Wrist (g/cm2): 0.713 T Score values are as follows: -----Dist. R+U: 1.1 -----Prox. R+U: 0.2 -----Radius total: 0.6 Bone mineral density BASELINE IMPRESSION: Normal (Values between +1 and -1 indicate normal bone mass). Consider repeating this study in 5 year s or sooner if there is some new clinical indication. NOTE: T-SCORE=SD OF THE YOUNG ADULT MEAN.
--- NOTE | 2018-09-03 12:31 | MM ---
Reason for exam: screening (asymptomatic). Last mammogram was performed 7 years and 10 months ago. History: Patient is postmenopausal. Family history of premenopausal breast cancer in sister, breast cancer in mother, breast cancer in maternal aunt at age 39, and breast cancer in paternal aunt at age 3. Excisional biopsy of the left breast. Took hormonal contraceptives for 16 years. Taking other hormone. Physical Findings: A clinical breast exam by your physician is recommended on an annual basis and results should be correlated with mammographic findings. MG Screening Mammo w CAD Bilateral CC and MLO view(s) were taken. Prior study comparison: November 12, 2010, CAD bilateral diagnostic mammogram. February 25, 2010, left breast digital mammogram. The breast tissue is heterogeneously dense. This may lower the sensitivity of mammography. There is no discrete abnormality. No significant changes when compared with prior studies. ASSESSMENT: Negative, BI-RAD 1 RECOMMENDATION: Routine screening mammogram of both breasts in 1 year.
== END | disposition home or self-care (01) ==
LOC: RADMAMWWP 07:28
PROVIDERS: ATTEND Obstetrics & Gynecology
DX: Z12.31 Encounter for screening mammogram for malignant neoplasm of breast (principal); Z13.820 Encounter for screening for osteoporosis; Z78.0 Asymptomatic menopausal state; Z80.3 Family history of malignant neoplasm of breast
CPT/HCPCS: 77067; 77080

== ENCOUNTER → 2019-03-25 | Outpatient (CLI) | payer OTHER ==
--- NOTE | 2019-03-25 14:08 | XR ---
EXAMINATION TYPE: XR lumbosacral spine min 4V DATE OF EXAM: 03/25/2019 CLINICAL HISTORY: pain COMPARISON: NONE TECHNIQUE: Frontal, lateral, and oblique images of the lumbar spine are obtained. FINDINGS: Postoperative changes of lumbar fusion at L4-[address] ped[address]. Remaining le vels are within normal limits. Alignment is anatomic. No fracture or dislocation. IMPRESSION: Postoperative changes L4-5.
== END | disposition home or self-care (01) ==
LOC: RADXRMAIN 13:45
PROVIDERS: ATTEND Family Medicine
DX: M54.5 Low back pain (principal); Z98.890 Other specified postprocedural states
CPT/HCPCS: 72110

== ENCOUNTER → 2019-07-04 | Outpatient (CLI) | payer OTHER ==
[2019-07-04 12:11] VITALS: BP 137/90; PULSE 73; RESP 16
--- NOTE | 2019-07-05 13:12 | P.PAINPG ---
Subjective Progress Note Date: 07/04/19 Patient returns for followup for chronic back pain with radiation to the legs. She was last seen in our clinic in May 2017, at which point she was going to follow-up with Dr. Arias. She underwent lumbar fusion at L4-[address] Arias in September 2017. She reports that the surgery helped her leg numbness as well as low back pain. She has undergone procedures with our clinic in the past, last in 2017 and she underwent bilateral lumbar RFA, which gave her relief only for 2-3 months on the right and the left did not help her significantly. Today, her primary pain complaint is located in the right low back with radiation to right buttocks, it does not extend into the lower extremity. This pain started approximately 6 months ago, with no inciting event. She has followed up with Dr. Arias who informed her that if her pain is most likely SI joint related, and recommended follow-up in pain clinic. 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 She has tried chiropractic therapy and physical therapy with no significant benefit. Patient continues on tramadol and ibuprofen for pain with no significant relief. Patient denies adverse drug effects from medications. Today, pt denies new- onset weakness, bowel/bladder incontinence, or any other signs or symptoms of cauda equina syndrome. There are no signs of acute intoxication, and no indications of medication diversion or overuse. In addition to above, 13-point review of systems is also negative for chest pain, shortness of breath, changes in vision, changes in hearing, new onset weakness, abdominal pain, diarrhea, extreme fatigue, malaise, fever, skin changes, homicidal or suicidal ideation, or bowel or bladder incontinence. Physical exam: Vitals: Reviewed in EMR GENERAL: Well appearing, in no acute distress PSYCH: Mood and affect is appropriate. Awake, alert, and oriented SKIN: Skin color, texture, turgor normal, no rashes or lesions HEENT: Normocephalic, atraumatic. EOM intact CV: No pedal edema RESP: Respirations are unlabored, no audible wheezing GI: Abdomen non-distended MUSCULOSKELETAL: Bilateral lower extremity strength is normal and symmetric. No atrophy or tone abnormalities are noted. Lumbar spine: Straight leg raising in the sitting position is negative for radicular pain. No pain to palpation over the lumbar spine and paraspinous muscles. Negative for pain with facet loading and back extension/rotation. Lumbar scar well healed. Buttocks: Tenderness to palpation over the right PSIS, right sided Alma Rosa's test positive, right sacral thrust positive, right Gaenslen's test positive. Extremities: Peripheral joint ROM is full and pain free without obvious instability or laxity in all four extremities. No edema or skin discolorations noted. Gait: Gait is normal NEUR: Bilateral lower extremity coordination and muscle stretch reflexes are physiologic and symmetric. Negative clonus bilaterally. No loss of sensation is noted. Imaging: Lumbar spine x-rays which show L4-5 fusion with pedicle screws. Assessment: 1. Right SI joint dysfunction 2. Status post lumbar spinal fusion at L4-5 Plan: 1. Explanation: Diagnoses, prognoses, and multiple treatment options including but not limited to physical therapy, interventional therapies, adjuvant medical therapies, and surgery were discussed with the patient and all questions were answered to the patient's satisfaction. 2. Opioid agreement: None 3. Counseling: The patient was counseled extensively on BODY MASS INDEX, EXERCISE. Specifically, the patient was instructed regarding the importance of weight control, and exercise in the context of both chronic pain and overall health. 4. Procedures: We will schedule right SI joint injection 5. Consultations: None 6. Investigations: None 7. Medications: none prescribed 8. Disposition: For above-mentioned procedure PQRS Measure Charge Sheet Measure #130: Documentation of Current Meds in Medical Chart: Patient's medications documented in chart Measure #226: Tobacco Use: Screen & Cessation Intervention: Pt not a tobacco user Measure #111: Pneumonia Vaccination: Pneumococcal vaccine NOT administered or previously given Measure #47: Advance Care Plan: Advance care planning discussed & documented, pt chose/unable to give Measure #412: Opioid Treatment Agreement: No documentation of signed opioid treatment agreement Measure #408: Opioid Therapy Follow-up Evaluation: Patient had NO f/u eval minimum every 3 months during opioid therapy Measure #317: Preventitive Care & Scrn High Bld Press & F/U: Pre-hypertensive or hypertensive BP documented, pt will f/u with PCP Measure #128: Body Mass Index (BMI) Screening & Follow-up: BMI documented ABOVE normal parameters - f/u documented Measure #131: Pain Assessment & Follow-up: Pain positive & plan documented, Follow-up scheduled Measure #431: Unhealthy Alcohol Use Preventative Care & Scrn: Patient not identified as an unhealthy alcohol user PQRS Narrative: Smoking Status Never smoker Hx Alcohol Use (MH) No Home Medications: Ambulatory Orders Amitriptyline HCl 25 mg PO HS 06/28/15 Loratadine [Claritin] 10 mg PO HS 06/28/15 Propranolol HCl [Propranolol HCl ER] 160 mg PO HS 06/28/15 Acetaminophen [Tylenol Arthritis] 650 mg PO BID 12/09/16 Cyclobenzaprine [Flexeril] 10 mg PO HS 12/09/16 Ibuprofen [Motrin] 800 mg PO TID 07/04/19 tiZANidine HCL [Zanaflex] 4 mg PO TID 07/04/19 traMADol HCL 50 mg PO HS 07/04/19 Controlled Substance Measures - Controlled Substance Measures Is patient prescribed a controlled substance at discharge?: No
== END | disposition home or self-care (01) ==
LOC: PNWHC3 11:15
PROVIDERS: ATTEND Anesthesiology
DX: G89.29 Other chronic pain (principal); M53.3 Sacrococcygeal disorders, not elsewhere classified; Z98.1 Arthrodesis status; Z98.890 Other specified postprocedural states; Z79.1 Long term (current) use of non-steroidal anti-inflammatories (NSAID); Z79.891 Long term (current) use of opiate analgesic; Z79.899 Other long term (current) drug therapy
CPT/HCPCS: 99211

== ENCOUNTER 2019-10-25 08:49 | Day surgery (SDC) | payer OTHER ==
[2019-10-24 09:14] VITALS: BMI 35.9
[~2019-10-25 08:49] MED LIST changes: -LIDOCAINE 1% 20 ML VIAL (10MG/ML) FOR IV START INTRADERMA PRN
[2019-10-25 09:06] VITALS: TEMP 98
[2019-10-25] MEDS ORDERED: LIDOCAINE 1% (10MG/ML) FOR IV START INTRADERMA ONE (09:09)
[2019-10-25] MEDS ORDERED: methylPREDNISolone ACETATE 40 MG/ML 1 ML VIAL ONE (09:37)
[2019-10-25] MEDS ORDERED: ROPIVACAINE 5MG/ML 20ML VIAL ONE (09:37)
[2019-10-25] MEDS ORDERED: MIDAZOLAM 2 MG/2 ML VIAL ONE (09:37)
[2019-10-25] MEDS ORDERED: fentaNYL (PF) 50 MCG/ML 2 ML AMP ONE (09:37)
--- NOTE | 2019-10-25 09:52 | P.PCN ---
Date of Procedure: 10/25/19 Procedure(s) Performed: Procedure= Right sacroiliac joints steroid injection under fluoroscopy guidance (fluoroscopy image stored on file in the radiology Department ) Preoperative diagnosis= 1-right sacroiliitis 2-right sacroiliac joint dysfunction Postoperative diagnosis=Same as preop Diagnosis . Complication = none Condition= stable Anesthesia= moderate sedation with intravenous Versed 2 mg , and fentanyl 50 micrograms . Indication for the procedure= patient complaining of low back pain , examination was positive for severe tenderness over the sacroiliac joints bilaterally and patient diagnosed with sacroiliitis, for this reason she was good candidate for sacroiliac joint steroid injection. Description of the procedure= procedure risk and benefits discussed with the patient, including but not limited, risk of infection and bleeding, and ALLERGIC reaction to the medication and not complete pain relief and patient agreed with the preceding patient taken to the operating room, placed in prone position or standard monitors applied to the patient then after induction of anesthesia back prepped with chlorhexidine 3 times , Then under strict sterile technique, first I did the right sacroiliac joint the which was identified under fluoroscopy guidance been local infiltration of the skin and subcu interstitial with lidocaine 1% then 22-gauge Quincke Needle advanced slowly under fluoroscopy and placed in the right sacroiliac joint needle placement confirmed with AP and oblique and lateral view and after appropriate needle placement confirmed and after negative aspiration, or heme , then Ropivacaine 0.5% 4 mL, and 40 mg of Depo-Medrol mixed together and injected in the right sacroiliac joint after negative aspiration patient tolerated the procedure well without any complication.
[2019-10-25] MEDS ORDERED: LACTATED RINGERS 1,000 ML IV ONE (09:54)
[2019-10-25] MEDS ORDERED: IV FLUID CONTINUATION 775 ML IV ONE (09:54)
[2019-10-25 09:57] VITALS: RESP 17
[2019-10-25 10:01] VITALS: BP 111/74; PULSE 71
--- NOTE | 2019-10-25 10:11 | FL ---
EXAMINATION TYPE: FL guided pain mgmt statistic DATE OF EXAM: 10/25/2019 CLINICAL HISTORY: Sacroiliac joint pain. TECHNIQUE: Fluoroscopy. COMPARISON: None. FINDINGS: Fluoroscopic guidance was provided during pain relief procedure performed by Dr. Nixon . A total of 4 seconds of fluoroscopic time was utilized during the procedure and single spot fluoro scopic intraoperative image is acquired. Single image acquired shows needle localization at level of sacroiliac joint. IMPRESSION: As Above.
== END 2019-10-25 10:24 | disposition home or self-care (01) ==
LOC: ORPAIN 08:49
PROVIDERS: ATTEND Specialist
DX: M46.1 Sacroiliitis, not elsewhere classified (principal); M53.88 Other specified dorsopathies, sacral and sacrococcygeal region; Z88.8 Allergy status to other drugs, medicaments and biological substances
CPT/HCPCS: 27096; J2250; J1030; J3010; J2795

== ENCOUNTER → 2019-11-04 | Outpatient (CLI) | payer OTHER ==
--- NOTE | 2019-11-08 08:22 | MM ---
Reason for exam: screening (asymptomatic). Last mammogram was performed 1 year and 2 months ago. History: Patient is postmenopausal. Family history of premenopausal breast cancer in sister, breast cancer in mother, breast cancer in maternal aunt at age 39, breast cancer in paternal aunt at age 3, and breast cancer in sister. Excisional biopsy of the left breast. Took hormonal contraceptives for 16 years. Taking other hormone for 4 months. Physical Findings: A clinical breast exam by your physician is recommended on an annual basis and results should be correlated with mammographic findings. MG Screening Mammo w CAD Bilateral CC and MLO view(s) were taken. Prior study comparison: September 02, 2018, bilateral MG screening mammo w CAD. November 12, 2010, CAD bilateral diagnostic mammogram. The breast tissue is heterogeneously dense. This may lower the sensitivity of mammography. There is no discrete abnormality. No significant changes when compared with prior studies. ASSESSMENT: Negative, BI-RAD 1 RECOMMENDATION: Routine screening mammogram of both breasts in 1 year.
== END | disposition home or self-care (01) ==
LOC: RADMAMWWP 10:00
PROVIDERS: ATTEND Obstetrics & Gynecology
DX: Z12.31 Encounter for screening mammogram for malignant neoplasm of breast (principal); Z80.3 Family history of malignant neoplasm of breast
CPT/HCPCS: 77067

== ENCOUNTER 2019-12-27 12:38 | Day surgery (SDC) | payer OTHER ==
[2019-12-27 12:54] VITALS: RESP 16; TEMP 97.6
[2019-12-27] MEDS ORDERED: LACTATED RINGERS 1,000 ML IV SCH (12:55)
[2019-12-27] MEDS ORDERED: LIDOCAINE 1% (10MG/ML) FOR IV START INTRADERMA ONE (13:10)
[2019-12-27] MEDS ORDERED: methylPREDNISolone ACETATE 40 MG/ML 1 ML VIAL ONE (13:14)
[2019-12-27] MEDS ORDERED: MIDAZOLAM 2 MG/2 ML VIAL ONE (13:14)
[2019-12-27] MEDS ORDERED: fentaNYL (PF) 50 MCG/ML 2 ML AMP ONE (13:14)
[2019-12-27] MEDS ORDERED: ROPIVACAINE 5MG/ML 20ML VIAL ONE (13:14)
--- NOTE | 2019-12-27 13:31 | P.PCN ---
Date of Procedure: 12/27/19 Procedure(s) Performed: Procedure= Right sacroiliac joints steroid injection under fluoroscopy guidance (fluoroscopy image stored on file in the radiology Department ) Preoperative diagnosis= 1-right sacroiliitis 2-right sacroiliac joint dysfunction Postoperative diagnosis=Same as preop Diagnosis . Complication = none Condition= stable Anesthesia= moderate sedation with intravenous Versed 2 mg , and fentanyl 50 micrograms . Indication for the procedure= patient complaining of low back pain , examination was positive for severe tenderness over the right sacroiliac joints ,and patient diagnosed with sacroiliitis, for this reason she was good candidate for sacroiliac joint steroid injection. Description of the procedure= procedure risk and benefits discussed with the patient, including but not limited, risk of infection and bleeding, and ALLERGIC reaction to the medication and not complete pain relief and patient agreed with the preceding patient taken to the operating room, placed in prone position or standard monitors applied to the patient then after induction of anesthesia back prepped with chlorhexidine 3 times , Then under strict sterile technique, I did the right sacroiliac joint , which was identified under fluoroscopy guidance been local infiltration of the skin and subcu interstitial with lidocaine 1% then 22-gauge Quincke Needle advanced slowly under fluoroscopy and placed in the right sacroiliac joint needle placement confirmed with AP and oblique and lateral view and after appropriate needle placement confirmed and after negative aspiration, or heme , then Ropivacaine 0.5% 4 mL, and 80 mg of Depo-Medrol mixed together and injected in the right sacroiliac joint after negative aspiration patient tolerated the procedure well without any complication.
[2019-12-27] MEDS ORDERED: IV FLUID CONTINUATION 1,000 ML IV ONE (13:34)
--- NOTE | 2019-12-27 13:56 | FL ---
EXAMINATION TYPE: FL guided pain mgmt statistic DATE OF EXAM: 12/27/2019 CLINICAL HISTORY: Right sacroiliac joint pain. TECHNIQUE: Fluoroscopy. COMPARISON: None. FINDINGS: Fluoroscopic guidance was provided during pain relief procedure performed by Dr. Nixon . A total of 2 seconds of fluoroscopic time was utilized during the procedure and single spot intrao perative image is acquired. Single image acquired shows needle localization at the inferior aspect s acroiliac joint. IMPRESSION: As Above.
[2019-12-27 13:57] VITALS: BP 142/57; PULSE 76
== END 2019-12-27 14:06 ==
LOC: ORPAIN 12:38
PROVIDERS: ATTEND Specialist
DX: M46.1 Sacroiliitis, not elsewhere classified (principal); M53.3 Sacrococcygeal disorders, not elsewhere classified; Z88.8 Allergy status to other drugs, medicaments and biological substances
CPT/HCPCS: 27096; J2250; J1030; J3010; J2795

== ENCOUNTER → 2020-01-16 | Outpatient (CLI) | payer OTHER ==
[2020-01-16 09:09] VITALS: BP 125/80; PULSE 80; RESP 14; TEMP 98.3
--- NOTE | 2020-01-16 09:26 | P.PN ---
Subjective Progress Note Date: 01/16/20 This is a 54-year-old lady with history of chronic lower back pain status post lumbar fusion about 2 years ago. The keira has been on the right side of her lower back around her sacroiliac joint. The patient had sacroiliac joint injection which gave her 2 days of pain relief however she felt this improvement on the same day of procedure. She denies any bowel or bladder dysfunction or any numbness in the lower extremities. Occasionally this pain radiates down to the right thigh anteriorly however is not doing that anymore. Patient denies new-onset weakness, bowel/bladder incontinence, or any other signs or symptoms of cauda equina syndrome. There are no signs of acute intoxication, and no indications of medication diversion or overuse. In addition to above, 13-point review of systems is also negative for chest pain, shortness of breath, changes in vision, changes in hearing, new onset weakness, abdominal pain, diarrhea, extreme fatigue, malaise, fever, skin changes, homicidal or suicidal ideation, or bowel or bladder incontinence. Vital Signs: Reviewed in EMR Gen: AAOx3, NAD HEENT: PERRLA,hearing grossly normal Pulm: resp unlabored Heart: Regular Neck: supple, trachea midline Neuro exam of the lower extremities: Normal muscle strength in the lower extremity is bilaterally and symmetrically. Symmetrical knee reflexes and absent ankle reflexes bilaterally. Straight leg raising test: Negative bilaterally Positive tenderness around the right sacroiliac joint Neuro: CN II-XII grossly intact, Imaging: Reviewed in EMR/chart Assessment: Lumbar postlaminectomy pain syndrome Right sacroiliitis/sacroiliac joint dysfunction Plan: 1. Explanation: Opioid and psychological risk scores were reviewed. Diagnoses, prognoses, and multiple treatment options including but not limited to physical therapy, interventional therapies, adjuvant medical therapies, narcotic medication therapies, and surgery were discussed with the patient and all questions were answered to the patient's satisfaction. 2. Opioid agreement: Signed with the patient and the patient is warned not to use opioids while driving or before driving and not to combine opioids with benzodiazepines or alcohol. 3. Counseling: The patient was counseled extensively on SMOKING CESSATION, BODY MASS INDEX, EXERCISE. Specifically, the patient was instructed regarding the importance of smoking cessation, obesity, and exercise in the context of both chronic pain and overall health. 4. Procedures: Scheduled for right sacroiliac joint RFA for the L5 medial branch and S1,S2 and possibly S3 lateral branches. The patient understands that she might have partial relief of her sacroiliac joint pain because we cannot ablate all the nerves going to the sacroiliac joint. 5. Consultations: None 6. Investigations: None 7. Medications: None 8. Disposition: Return to clinic in 4 weeks 9. Maps were reviewed and were appropriate. PQRS measures: 1-Patient's medications are documented in the chart. 2-Tobacco use is negative, counseling given 3-Patient has not had a pneumococcal vaccine. 4-Advanced care planning discussed, patient unable to give 5-Opioid contract not signed with the patient. Patient does not of C4) our clinic 6-Pain positive, follow-up visit or procedure scheduled 7-Patient's blood pressure measured and documented above/ normal limits. The patient will follow up with his primary care physician. 8-Patient's weight was measured, and body mass index ABOVE the normal limits, and counseling was done. Patient instructed to follow up with PCP. 9-Patient WAS NOT identified as an unhealthy alcohol user. Objective - Vital Signs Vital signs: Vital Signs Temp 98.3 F 01/16/20 08:59 Pulse 80 01/16/20 08:59 Resp 14 01/16/20 08:59 BP 125/80 01/16/20 08:59 Pulse Ox 97 01/16/20 08:59 Intake & Output 01/15/20 01/16/20 01/16/20 18:59 06:59 18:59 Weight 83.915 kg
== END | disposition home or self-care (01) ==
LOC: PNWHC3 08:38
PROVIDERS: ATTEND Anesthesiology
DX: M96.1 Postlaminectomy syndrome, not elsewhere classified (principal); M46.1 Sacroiliitis, not elsewhere classified; Z98.1 Arthrodesis status
CPT/HCPCS: 99211

== ENCOUNTER → 2020-11-05 | Outpatient (CLI) | payer OTHER ==
--- NOTE | 2020-11-08 10:52 | MM ---
Reason for exam: screening (asymptomatic). Last mammogram was performed 1 year ago. History: Patient is postmenopausal. Family history of premenopausal breast cancer in sister, breast cancer in mother, breast cancer in maternal aunt at age 39, breast cancer in paternal aunt at age 3, and breast cancer in sister. Excisional biopsy of the left breast. Took hormonal contraceptives for 16 years. Taking other hormone for 4 months. Physical Findings: A clinical breast exam by your physician is recommended on an annual basis and results should be correlated with mammographic findings. MG 3D Screening Mammo W/Cad Bilateral CC and MLO view(s) were taken. Prior study comparison: November 04, 2019, bilateral MG screening mammo w CAD. September 02, 2018, bilateral MG screening mammo w CAD. The breast tissue is heterogeneously dense. This may lower the sensitivity of mammography. There are benign appearing round calcifications bilaterally. ASSESSMENT: Benign, BI-RAD 2 RECOMMENDATION: Routine screening mammogram of both breasts in 1 year.
== END | disposition home or self-care (01) ==
LOC: RADMAMWWP 08:11
PROVIDERS: ATTEND Obstetrics & Gynecology
DX: Z12.31 Encounter for screening mammogram for malignant neoplasm of breast (principal)
CPT/HCPCS: 77063; 77067

== ENCOUNTER → 2021-02-08 | Day surgery (SDC) | payer OTHER ==
[2021-02-07 08:39] VITALS: BMI 35.9
[~2021-02-08] MED LIST changes: +ACETAMINOPHEN TAB 500 MG TAB PO ONE; +ALPRAZolam 0.25 MG TAB PO PRN; +ALPRAZolam 0.5 MG TAB PO PRN; +ASPIRIN 325 MG TAB PO STA; +ATORVASTATIN 80 MG TAB PO STA; +HEPARIN SODIUM 1,000 UN/ML (10ML VL) IV ONE; +HEPARIN SODIUM 1,000 UN/ML (10ML VL) ONE; +IOPAMIDOL-370 125ML BTL INJ ONE; -LACTATED RINGERS 1,000 ML IV SCH; +LIDOCAINE 1% INJ 10MG/ML (20 ML MDV) ONE; +LIDOCAINE 1% INJ 10MG/ML (20 ML MDV) SQ ONE; +MIDAZOLAM 2 MG/2 ML VIAL IV ONE; +NITROGLYCERIN SL TABS 0.4 MG TAB SUBLINGUAL PRN; +RX INFO: IV CONTRAST WAS GIVEN 1 EACH MISC MISCELLANE PRN; +SODIUM CHLORIDE 0.9% 1,000 ML IV ONE; +SODIUM CHLORIDE 0.9% 1,000 ML IV SCH; +SODIUM CHLORIDE 0.9% 1,000 ML in EMPTY BAG 1 BAG IV SCH; +VERAPAMIL 2.5 MG/ML 2 ML AMP ONE; +VERAPAMIL SYRINGE (5 MG/10 ML) INTRAARTER ONE; +fentaNYL (PF) 50 MCG/ML 2 ML AMP IV ONE; +fentaNYL (PF) 50 MCG/ML 2 ML AMP ONE
[2021-02-08 10:50] VITALS: RESP 16; TEMP 99.6
[2021-02-08 11:02] LABS: Basophils # (A) 0.1 k/uL (0-0.2); Basophils % (A) 1 %; Eosinophils # (A) 0.2 k/uL (0-0.7); Eosinophils % (A) 1 %; HCT 44.4 % (34.0-46.0); HGB 14.9 gm/dL (11.4-16.0); Lymphocytes # (A) 2.3 k/uL (1.0-4.8); Lymphocytes % (A) 13 %; MCH 29.5 pg (25.0-35.0); MCHC 33.5 g/dL (31.0-37.0); Mean Platelet Volume 7.2; Monocytes % (A) 6 %; Neutrophils # (A) 13.6 k/uL (1.3-7.7); Neutrophils % (A) 78 %; Platelet Count 343 k/uL (150-450); RBC 5.04 m/uL (3.80-5.40); RDW 13.3 % (11.5-15.5); WBC 17.5 k/uL (3.8-10.6)
--- NOTE | 2021-02-08 14:10 | CC ---
CARDIAC CATHETERIZATION REPORT DATE OF SERVICE: 02/08/2021 PERFORMING PHYSICIAN: Sigifredo Galvan M.D. PROCEDURE PERFORMED: 1. Selective right and left coronary angiogram. 2. Left heart catheterization. INDICATION: Chest discomfort and abnormal myocardial perfusion imaging stress test. COMPLICATIONS: None. LEVEL OF SEDATION: Moderate, with sedation length of 14 minutes. PROCEDURE DESCRIPTION: After obtaining informed consent, the patient was brought to the cardiac woods laborer. The right radial artery was cannulated using micropuncture technique. The micropuncture wire passed easily. Then I placed a 6-Occitan sheath at the right radial artery. I did give the patient 2 mg of verapamil IA and 6000 units of heparin IV. Selective right and left coronary angiogram was performed using JR4 and JL3.5 catheters. Left heart catheterization was performed using the JR4 catheter, which crossed the aortic valve. Then I did pullback across the valve after the catheter was flushed. The procedure was completed without any complication. SELECTIVE CORONARY ANGIOGRAM: 1. The right coronary artery is a large-caliber vessel. It is a dominant vessel. The RCA is angiographically normal. It distally bifurcates into PDA and PLV branches and both appeared to be angiographically normal. 2. The left main is angiographically normal. It bifurcates into left circumflex and left anterior descending artery. 3. The left circumflex is a large-caliber vessel. It is a nondominant vessel. The left circumflex is angiographically normal. It gives rise to the first and second obtuse marginal branches and both appeared to be angiographically normal. 4. The LAD. The proximal LAD appeared to be angiographically normal. The mid LAD appeared to be angiographically normal. It gives rise to a large diagonal branch which worked as a dual LAD system. The LAD distally appeared to be angiographically normal. 5. HEMODYNAMICS: The LVEDP was about 10 mmHg without significant gradient across the aortic valve. CONCLUSION: 1. Normal coronary angiogram. 2. Normal LVEDP. POSTPROCEDURE MANAGEMENT: Medical treatment and follow up with the patient. MMODL / IJN: [id number] /
[2021-02-08 15:09] VITALS: PULSE 78
[2021-02-08 16:11] VITALS: BP 105/62
== END ==
LOC: CATHCVL 10:21
PROVIDERS: ATTEND Internal Medicine Interventional Cardiology
DX: I20.0 Unstable angina (principal); R94.39 Abnormal result of other cardiovascular function study; Z79.82 Long term (current) use of aspirin; I10 Essential (primary) hypertension; Z20.822 Contact with and (suspected) exposure to COVID-19; E78.1 Pure hyperglyceridemia; Z82.49 Family history of ischemic heart disease and other diseases of the circulatory system; E78.00 Pure hypercholesterolemia, unspecified; Z79.1 Long term (current) use of non-steroidal anti-inflammatories (NSAID); Z79.899 Other long term (current) drug therapy; Z88.8 Allergy status to other drugs, medicaments and biological substances
CPT/HCPCS: 93458; 85025; 87635; C1894; J2250; J2001; J3010; J1644; Q9967

== ENCOUNTER → 2022-04-23 | Outpatient (CLI) | payer OTHER ==
--- NOTE | 2022-04-23 20:11 | MR ---
EXAMINATION TYPE: MR lumbar spine wo con DATE OF EXAM: 04/23/2022 7:50 PM COMPARISON: Lumbar spine 05/06/2017 CLINICAL INDICATION:Female, 56 years old with history of M54.41; M51.26; TECHNIQUE: Multi planar, multi sequence imaging was performed utilizing: T1-weighted, T2-weighted, a nd turbo inversion recovery imaging of the lumbar spine. IV Contrast: None. FINDINGS: Alignment: The lumbar vertebral bodies have preserved heights. Grade 1 anterolisthesis of L4 on L5. Cord: The conus medullaris and the distal spinal cord appear unremarkable with regards to their signa l intensity and morphology. Bones/Discs: Post surgical changes at L4 and L5 limits evaluation at these levels slightly. Multileve l degenerative disc disease is noted and most pronounced at the L3-S1 Multilevel disc desiccation is present. L1-L2: No evidence of significant spinal canal stenosis or neural foraminal stenosis. L2-L3: No evidence of significant spinal canal stenosis or neural foraminal stenosis. L3-L4: Eccentric left disc bulge with superimposed protrusion with moderate to severe left neural for aminal stenosis. Mild right neural foraminal stenosis. Spinal canal is patent. L4-L5: Disc uncovering without significant spinal canal stenosis. The neural foramen are patent. L5-S1: No evidence of significant spinal canal stenosis or neural foraminal stenosis. Other findings: None. IMPRESSION: 1. L3-L4 disc bulge with superimposed herniation without significant spinal canal stenosis. This res ults in at least moderate to severe left neural foraminal stenosis. 2. Postsurgical changes to the spine without evidence of significant spinal canal stenosis.
== END | disposition home or self-care (01) ==
LOC: RADMRIMAIN 18:59
PROVIDERS: ATTEND Family Medicine
DX: M51.16 Intervertebral disc disorders with radiculopathy, lumbar region (principal); M99.73 Connective tissue and disc stenosis of intervertebral foramina of lumbar region
CPT/HCPCS: 72148

== ENCOUNTER → 2022-05-30 | Outpatient (CLI) | payer OTHER ==
[2022-05-30 14:28] LABS: Basophils # (A) 0.17 X 10*3/uL (0.00-0.10); Basophils % (A) 1.5 %; Eosinophils # (A) 0.22 X 10*3/uL (0.04-0.35); Eosinophils % (A) 1.9 %; HCT 42.6 % (37.2-46.3); HGB 13.9 g/dL (12.0-15.0); Immature Grans, Automated 3.8 %; Lymphocytes # (A) 3.67 X 10*3/uL (0.90-5.00); Lymphocytes % (A) 31.4 %; MCH 29.8 pg (27.0-32.0); MCHC 32.6 g/dL (32.0-37.0); MCV 91.2 fL (80.0-97.0); Mean Platelet Volume 9.6 fL (9.5-12.2); Monocytes % (A) 7.7 %; NRBC Per 100 WBC 0 /100 WBCS (0.0-0.0); Neutrophils % (A) 53.7 %; Platelet Count 365 X 10*3/uL (140-440); RBC 4.67 X 10*6/uL (4.10-5.20); RDW 13.5 % (11.5-14.5)
[2022-05-30 16:21] LABS: ALT 22 U/L (8-44); AST 15 U/L (13-35); African American GFR (CKD) 112.3 (60.0-200.0); Albumin 4.4 g/dL (3.8-4.9); Albumin/Globulin Ratio 2.12 (1.60-3.17); Alkaline Phosphatase 99 U/L (41-126); BUN/Creat Ratio 30.47 Ratio (12.00-20.00); Blood Urea Nitrogen 21.3 mg/dL (9.0-27.0); Calcium 9.2 mg/dL (8.7-10.3); Carbon Dioxide 28.9 mmol/L (20.0-27.5); Chloride 105 mmol/L (96-109); Chol/HDL Ratio 4.64 Ratio; Globulin 2.1 g/dL (1.6-3.3); Glucose 74 mg/dL (70-110); LDL Cholesterol,Calculated 130.4 mg/dL (0.0-131.0); Non-African American GFR(CKD) 96.9 (60.0-200.0); Potassium 4.7 mmol/L (3.5-5.5); Sodium 144 mmol/L (135-145); Total Bilirubin <0.15 mg/dL (0.30-1.20); Total Protein 6.4 g/dL (6.2-8.2)
== END | disposition home or self-care (01) ==
LOC: LABWHC1 08:44
PROVIDERS: ATTEND Family Medicine
DX: Z00.01 Encounter for general adult medical examination with abnormal findings (principal); E55.9 Vitamin D deficiency, unspecified; E03.9 Hypothyroidism, unspecified; G43.009 Migraine without aura, not intractable, without status migrainosus; I34.0 Nonrheumatic mitral (valve) insufficiency; L65.8 Other specified nonscarring hair loss; M51.26 Other intervertebral disc displacement, lumbar region; M54.41 Lumbago with sciatica, right side; R53.83 Other fatigue
CPT/HCPCS: 36415; 80053; 80061; 82306; 84439; 84443; 85025

== ENCOUNTER → 2023-05-11 | Outpatient (CLI) | payer OTHER ==
[2023-05-11 15:15] LABS: Basophils # (A) 0.09 X 10*3/uL (0.00-0.10); Basophils % (A) 1.2 %; Eosinophils # (A) 0.15 X 10*3/uL (0.04-0.35); HCT 44.2 % (37.2-46.3); HGB 14.5 g/dL (12.0-15.0); Lymphocytes # (A) 2.26 X 10*3/uL (0.90-5.00); Lymphocytes % (A) 30.3 %; MCH 29.2 pg (27.0-32.0); MCHC 32.8 g/dL (32.0-37.0); MCV 89.1 FL (80.0-97.0); Mean Platelet Volume 9.7 FL (9.5-12.2); Monocytes # (A) 0.58 X 10*3/uL (0.20-1.00); Monocytes % (A) 7.8 %; NRBC Per 100 WBC 0 X 10*3/uL (0.00-0.01); Neutrophils % (A) 57.8 %; Platelet Count 400 X 10*3/uL (140-440); RBC 4.96 X 10*6/uL (4.10-5.20); RDW 13.4 % (11.5-14.5); WBC 7.45 X 10*3/uL (4.50-10.00)
[2023-05-11 15:41] LABS: ALT 17 U/L (8-44); AST 15 U/L (13-35); BUN/Creat Ratio 19.86 Ratio (12.00-20.00); Blood Urea Nitrogen 13.9 mg/dL (9.0-27.0); Calcium 10.3 mg/dL (8.7-10.3); Carbon Dioxide 26.4 mmol/L (21.6-31.8); Chloride 102 mmol/L (96-109); Chol/HDL Ratio 6.01 Ratio; Glucose 109 mg/dL (70-110); LDL Cholesterol,Calculated 148.4 mg/dL (0.0-131.0); Magnesium 1.8 mg/dL (1.5-2.4); Potassium 5.1 mmol/L (3.5-5.5); Sodium 140 mmol/L (135-145); T4, Free (Free Thyroxine) 1.08 ng/dL (0.80-1.80)
== END | disposition home or self-care (01) ==
LOC: LABWHC1 11:28
PROVIDERS: ATTEND Family Medicine
DX: E11.9 Type 2 diabetes mellitus without complications (principal); E78.5 Hyperlipidemia, unspecified; E03.9 Hypothyroidism, unspecified
CPT/HCPCS: 36415; 80048; 80061; 83735; 84439; 84443; 84450; 84460; 84481; 85025

== ENCOUNTER → 2023-05-12 | Outpatient (CLI) | payer OTHER ==
--- NOTE | 2023-05-12 18:07 | MM ---
Reason for Exam: Screening (asymptomatic). Last mammogram was performed 2 year(s) and 6 month(s) ago. Patient History: Menarche at age 11. First Full-Term at age 21. Hysterectomy at age 38. Postmenopausal. Patient tested for BRCA1 outcome was negative. Patient tested for BRCA2 outcome was negative. Patient used Hormonal Contraceptives for 16 years. Excisional Biopsy on the Left side. Paternal aunt had breast cancer, age 3. Maternal aunt had breast cancer, age 39. Niece had breast cancer under age 50. Sister had breast cancer. Sister had breast cancer. Mother had breast cancer. Risk Values: Brooke 5 year model risk: 6.7%. NCI Lifetime model risk: 34.9%. Prior Study Comparison: 09/02/2018 Bilateral Screening Mammogram, [facility]. 11/04/2019 Bilateral Screening Mammogram, [facility]. 11/05/2020 Bilateral Screening Mammogram, [facility]. Tissue Density: There are scattered fibroglandular densities. Findings: Analyzed By CAD. There is no suspicious group of microcalcifications or new suspicious mass in either breast. Overall Assessment: Negative, BI-RAD 1 Management: Screening Mammogram of both breasts in 1 year. SEE NOTE BELOW IN REGARDS TO PATIENT'S INCREASED FIVE-YEAR BROOKE SCORE AND PATIENT'S INCREASED LIFETIME RISK SCORE. Patient should continue monthly self-breast exams. A clinical breast exam by your physician is recommended on an annual basis. This exam should not preclude additional follow-up of suspicious palpable abnormalities. Note on Brokoe scores and lifetime risk: 1. A Brooke score greater than 3% is considered moderate risk. If this is the case, consider specialist referral to assess eligibility for a risk reducing agent. 2. If overall lifetime risk for the development of breast cancer is 20% or higher, the patient may qualify for future screening with alternating mammogram and breast MRI. Electronically signed and approved by: Nicole Allen M.D. Radiologist
== END | disposition home or self-care (01) ==
LOC: RADMAMWWP 07:11
PROVIDERS: ATTEND Obstetrics & Gynecology
DX: Z12.31 Encounter for screening mammogram for malignant neoplasm of breast (principal); Z80.3 Family history of malignant neoplasm of breast; Z78.0 Asymptomatic menopausal state
CPT/HCPCS: 77063; 77067

== ENCOUNTER → 2023-05-25 | Outpatient (CLI) | payer OTHER | END | disposition home or self-care (01) | LOC: LABWHC1 09:02 | PROVIDERS: ATTEND Family Medicine | DX: E11.9 Type 2 diabetes mellitus without complications (principal); E78.5 Hyperlipidemia, unspecified | CPT/HCPCS: 36415; 83036 ==

== ENCOUNTER → 2023-06-12 | Outpatient (CLI) | payer OTHER ==
--- NOTE | 2023-06-12 20:37 | MR ---
EXAMINATION TYPE: MR lumbar spine wo con DATE OF EXAM: 06/12/2023 8:15 PM CLINICAL INDICATION:Female, 57 years old with history of M54.50 LOW BACK PAIN; PHH, Lower Back Pain t hat radiates down both legs COMPARISON: None TECHNIQUE: Multi planar, multi sequence imaging was performed utilizing: T1-weighted, T2-weighted, a nd turbo inversion recovery imaging of the lumbar spine. IV Contrast: cc . (None if empty) FINDINGS: Alignment: The lumbar vertebral bodies have preserved heights with grade 1 anterolisthesis of L4 on L 5. Cord: The conus medullaris and the distal spinal cord appear unremarkable with regards to their signa l intensity and morphology. Bones/Discs: Postsurgical changes with hardware 4 and L5 which limits evaluation. Mild degeneration c hanges throughout the spine with osteophyte formation and facet joint arthropathy. Intervertebral dis c signal is maintained. T12-L1: No evidence of significant spinal canal stenosis or neural foraminal stenosis. L1-L2: No evidence of significant spinal canal stenosis or neural foraminal stenosis. L2-L3: No evidence of significant spinal canal stenosis or neural foraminal stenosis. L3-L4: Central disc protrusion with facet joint arthropathy with moderate to severe spinal canal sten osis. Moderate to severe severe left and mild to moderate right neural foraminal stenosis. L4-L5: Fixation hardware in place limits evaluation. Disc uncovering from grade 1 anterolisthesis and facet joint arthropathy with mild spinal canal stenosis and mild bilateral neural foraminal stenosis . L5-S1: Susceptibility artifact limits evaluation. Mild to moderate right neural foraminal stenosis Sp inal canal appears patent. No significant spinal canal or neural foraminal stenosis in the remainder of the visualized levels. Other findings: Left renal high T2 signal cyst partially visualized. IMPRESSION: 1. Central disc protrusion with moderate to severe spinal canal stenosis at L3-L4. Additionally ther e is moderate to severe left neural foraminal stenosis at this level. This is progressed from prior o n 04/23/2022. 2. Postsurgical changes L4-L5
== END | disposition home or self-care (01) ==
LOC: RADMRIMAIN 18:54
PROVIDERS: ATTEND Orthopaedic Surgery
DX: M48.061 Spinal stenosis, lumbar region without neurogenic claudication (principal); M51.16 Intervertebral disc disorders with radiculopathy, lumbar region; M99.73 Connective tissue and disc stenosis of intervertebral foramina of lumbar region; Z98.890 Other specified postprocedural states
CPT/HCPCS: 72148

== ENCOUNTER → 2023-07-13 | Outpatient (CLI) | payer OTHER ==
[2023-07-13 08:49] VITALS: BP 128/68; PULSE 97; RESP 15; TEMP 98.6
--- NOTE | 2023-07-13 14:20 | P.PAINPG ---
Objective - Vital Signs Vital signs: Intake & Output 07/12/23 07/13/23 07/13/23 18:59 06:59 18:59 Weight 83.461 kg PQRS Measure Charge Sheet Comment: HISTORY OF PRESENT ILLNESS: A 57 yr old female as a referral from Dr Wolf presents today w severe and chronic LBP since 2018 secondary to DDD, spondylosis and facet arthropathy without myelopathy for evaluation. Pt states pain level is provoked at 6 /10 in intensity, constant, localized in the R lumbar spine, predominantly axial, achy in character w occasional shooting pain towards the R knee. Pain is provoked by bending. Pain is alleviated by physician guided home exercise regimen daily since Jun 26 2023, ice, medications (Celebrex), manual massage, repositioning and rest. Oswestry axial pain score at 22. PMH: OA, Diverticulitis PSH: R SI x2 (2019), BL RFA L2-L5 (2017), L4-L5 Laminectomy/ Discectomy w L5-S1 CAGE, Colonoscopy (2017), L Breast Lumpectomy, Cholecystectomy, Ear Surgery, Hysterectomy SH: Negative x3 FH: Mo- DVT, IL, Breast CA. Fa- IL. Sis- CAD, IL, PE. All: See list Meds: See list REVIEW OF ORGAN SYSTEMS: CONSTITUTIONAL: No fevers or chills. No recent weight loss. NEUROLOGICAL: + numbness and tingling along the distal extremities. No seizure disorders or headaches. MUSCULOSKELETAL: + pain PSYCHIATRIC: Denies current depression or suicidal thoughts. Physical Examinations : Constitutional : Cooperative , not in acute distress . Neurologic : Cranial nerve II to XII intact. No focal neurological deficits. Psychiatric : alert & oriented x 3. Matching mood & appropriate affect. Judgment & insight intact. Musculoskeletal : Cervical Spine Motor strength in the deltoid and biceps: Normal right side. Normal Left side Motor strength biceps and the wrist extensors: Normal right side . Normal left side Motor strength in the triceps muscle: Normal right side. Normal left side Deep tendon reflexes: Normal at the biceps. Normal at Brachioradialis. Normal at triceps Vertebral body tenderness to deep palpation over Cervical facet loading test: positive bilaterally Spurling test: positive bilaterally Neck distraction test: positive bilaterally Alana sign: positive bilaterally Lumbar spine Motor strength lower extremities ,thigh and legs 5/5 Right side , 5/5 Left side Deep tendon reflexes : Normal Knee Jerk. Normal Ankle Jerk Vertebral body tenderness over L3 Yun Test positive L3-L4 BL Lumbar facet Loading Test: positive Right / positive Left Range of motion of the lumbar spine Flexion 30 degrees, extension 10 degrees Straight Leg Raise test: Left/ Right positive at degree Alma Rosa test: positive right / positive left. Severe tenderness over the Sacroiliac joint on the Right / Left sides Gaenslen test: positive bilaterally Seated flexion test: positive bilaterally. Sacral spine : Severe tenderness over the Sacroiliac joint: right side / left side Range of motion: Flexion of the lumbar spine <60 degrees Range of motion: Extension of the lumbar spine <20 degrees Gaenslen's Test positive R Alma Rosa test: positive right side / left side Thigh Thrust Test R positive Sacral Thrust Test Imaging: MRI noncontrast of the lumbar spine from 06/12/2023 reviewed Assessment/ Plan : R Sacroiliitis Recommendation of EMERALD L3-L4 #1. May need a series of injections for optimal pain relief. Risks, benefits of procedure discussed and patient verbalized understanding. Admits to anti- coagulant use or medical history of diabetes. Protocol for discontinuation/ continuation of medications marshall procedure discussed. Minimal anesthesia provided, if clinically indicated, consisting of Versed and Fentanyl. All questions answered. I have spent greater than 30 minutes on patient care today. Dr Nixon was available by phone for the evaluation of this patient. The time was used to review the medical records including relevant urine studies and Prescription history (MAPs), review of the available imaging, evaluation and examination of the patient, coordination of care with the medical staff and if applicable referring physicians, as well as creation of the medical record PQRS Narrative: Smoking Status Never smoker Hx Alcohol Use (MH) No Home Medications: Ambulatory Orders Amitriptyline HCl 25 mg PO HS 06/28/15 Loratadine [Claritin] 10 mg PO HS 06/28/15 Propranolol HCl [Propranolol HCl ER] 160 mg PO HS 06/28/15 Acetaminophen [Tylenol Arthritis] 650 mg PO BID PRN 12/09/16 Ibuprofen [Motrin] 800 mg PO TID PRN 07/04/19 Thyroid, Pork [Early Branch Thyroid] 30 mg PO QAM 10/24/19 Lipitor Unknown Dose 40 mg PO HS 02/07/21 Aspirin 81 mg PO DAILY 02/08/21 Controlled Substance Measures - Controlled Substance Measures Is patient prescribed a controlled substance at discharge?: No
== END ==
LOC: PNWHC3 08:06
PROVIDERS: ATTEND Specialist
DX: M48.061 Spinal stenosis, lumbar region without neurogenic claudication (principal); M46.1 Sacroiliitis, not elsewhere classified; M54.51 Vertebrogenic low back pain; M19.90 Unspecified osteoarthritis, unspecified site; Z87.19 Personal history of other diseases of the digestive system; Z79.82 Long term (current) use of aspirin; Z88.8 Allergy status to other drugs, medicaments and biological substances
CPT/HCPCS: 99211

== ENCOUNTER 2023-07-23 07:21 | Day surgery (SDC) | payer OTHER ==
[2023-07-23] MEDS ORDERED: LACTATED RINGERS 1,000 ML IV SCH (07:44)
[2023-07-23 08:31] VITALS: TEMP 98.5
[2023-07-23] MEDS ORDERED: IOPAMIDOL M300 15ML VIAL ONE (08:48)
[2023-07-23] MEDS ORDERED: methylPREDNISolone ACETATE 80 MG/ML 1 ML VIAL ONE (08:48)
[2023-07-23] MEDS ORDERED: ROPIVACAINE 5MG/ML 20ML VIAL ONE (08:48)
--- NOTE | 2023-07-23 09:16 | P.PCN ---
Description of Procedure: PREOPERATIVE DIAGNOSIS: 1- Lumbar Degenerative Disc Diseases 2-Lumbar spondylosis with Facet arthropathy without myelopathy. 3-lumbar spinal stenosis POSTOPERATIVE DIAGNOSIS: 1-lumbar degenerative disc disease. 2-lumbar spondylosis with facet arthropathy without myelopathy. 3-lumbar spinal stenosis. PROCEDURE Injection of radio contrast material into L2-3 interspace, interpretation of epidurogram, injection of steroid at L2-3 epidural space under fluoroscopic guidance. ANESTHESIA: Lidocaine 1% subcutaneously. In OR continuous pulse ox, EKG, blood pressure and verbal communication was maintained with the patient. EBL: Minimal PROCEDURE INDICATION: Before the procedure were discussed with the patient detailed procedure, alternatives, complications including infection, bleeding, nerve damage, paralysis all of which could be permanent. Patient understands and all questions were answered. PROCEDURE DESCRIPTION : After getting consent, patient in OR in prone position. Back was prepped with chlorhexidine and draped in sterile fashion. After injecting 10 mL of 1% lidocaine subcutaneously, a 20-gauge Tuohy needle was introduced at L2-3 interspace with loss of resistance technique using a syringe filled with air. Negative CSF, negative blood, negative paresthesia. Needle position was confirmed with AP and lateral view of the fluoroscope. After repeat negative aspiration 2 mL of Omnipaque 200 water soluble contrast was injected. Contrast was noted in the epidural space. No contrast was noted into intrathecal or intravascular space. After repeat negative aspiration 6 mL solution was injected intermittently which consists of 5 mL of preservative-free normal saline mixed with 1 mL of 80 mg Depo-Medrol. At L3-4 level the Touhy needle would have been too close to the surgical pins, so decided to go 1 level up at L2-3. Needle was withdrawn intact. Skin was cleansed and Band-Aids was applied. DISPOSITION / PLANS: The patient tolerated the procedure well. No complication. The patient was placed in a supine position and transferred to the recovery area in a stable condition for observation. There was no evidence of lower extremity motor or sensory deficit after the procedure. Patient was discharged from the recovery room after meeting discharge criteria. Home discharge instructions were given to the patient by the staff. The patient was reexamined prior to discharge. The patient will schedule a follow up in the clinic in 2-4 weeks.
[2023-07-23 09:43] VITALS: BP 128/75; PULSE 65; RESP 18
--- NOTE | 2023-07-23 10:07 | FL ---
EXAMINATION TYPE: FL guided pain mgmt statistic Intraoperative/procedural fluoroscopic services were provided. Total fluoroscopy time is 11.4 seconds with a total of 2 submitted images to PACS. Please s ee the operative/procedural note for further details. DAP: [id number] mGym2
== END 2023-07-23 09:39 | disposition home or self-care (01) ==
LOC: ORPAIN 07:21
PROVIDERS: ATTEND Pain Medicine Interventional Pain Medicine
DX: M51.36 Other intervertebral disc degeneration, lumbar region (principal); M47.816 Spondylosis without myelopathy or radiculopathy, lumbar region; M48.061 Spinal stenosis, lumbar region without neurogenic claudication; Z88.8 Allergy status to other drugs, medicaments and biological substances; Z79.82 Long term (current) use of aspirin; Z79.1 Long term (current) use of non-steroidal anti-inflammatories (NSAID)
CPT/HCPCS: 62323; J1040; Q9967; J2795

== ENCOUNTER → 2023-10-08 | Outpatient (CLI) | payer OTHER ==
--- NOTE | 2023-10-08 15:35 | CT ---
EXAMINATION TYPE: CT lumbar spine wo con DATE OF EXAM: 10/08/2023 3:16 PM COMPARISON: None HISTORY: Chronic lower back pain, surgery x [address] DLP: 903.1 mGycm Automated exposure control for dose reduction was used. Unenhanced CT of the lumbar spine was performed. Bone and soft tissue window settings are submitted as well as coronal and sagittal reconstructions. Findings: There are postsurgical changes of laminectomy and interdisc and posterior metallic fusion at the L4-5 level. There is a persistent slight grade 1 anterolisthesis of L4 on L5. The remaining lumbar vertebral segments are normal in height and alignment. The disc spaces are well preserved. Evaluation is limited for lumbar disc herniation but no large dis c herniations are seen. There is no bony neural foraminal encroachment. Evaluation of spinal canal at the L3-4 level is limited due to metallic artifact in the noncontrast t echnique but at least mild possibly moderate spinal stenosis is suspected. IMPRESSION: 1. Postsurgical changes at the L4-5 level. 2. Evaluation limited by metallic artifact in the noncontrast technique but a mild possibly moderate spinal stenosis is suspected at the L3-4 level. Confirmation could be made with MRI of the lumbar spi ne or postmyelogram CT. 3. No bony encroachment of the neural foramina.
== END | disposition home or self-care (01) ==
LOC: RADCTMAIN 15:02
PROVIDERS: ATTEND Orthopaedic Surgery
DX: M54.16 Radiculopathy, lumbar region (principal)
CPT/HCPCS: 72131

== ENCOUNTER → 2023-11-12 | Outpatient (CLI) | payer OTHER ==
[2023-11-12 13:33] LABS: Appearance,Urine Cloudy (Clear); Bilirubin,Urine Negative (Negative); Blood,Urine Negative (Negative); Color,Urine Yellow; Glucose,Urine (UA) Negative (Negative); Ketones,Urine Negative (Negative); Leukocyte Esterase,Urine Negative (Negative); Mucus,Urine Rare /hpf; Nitrite,Urine Negative (Negative); PH, Urine 5.5 (5.0-8.0); Protein,Urine Negative (Negative); RBC,Urine 1 /hpf (0-5); Specific Gravity,Urine 1.021 (1.001-1.035); Squamous Epithelial Cell,Urine 14 /hpf (0-4); Urobilinogen,Urine <2.0 mg/dL (<2.0); WBC,Urine 1 /hpf (0-5)
[2023-11-12 13:37] LABS: INR 0.9 (<1.2); Partial Thromboplastin Time 23.4 sec (22.0-30.0); Prothrombin Time 10.2 sec (10.0-12.5)
[2023-11-12 18:30] LABS: Basophils # (A) 0.07 X 10*3/uL (0.00-0.10); Basophils % (A) 1.1 %; Eosinophils # (A) 0.17 X 10*3/uL (0.04-0.35); Eosinophils % (A) 2.6 %; HCT 40.1 % (37.2-46.3); HGB 13.3 g/dL (12.0-15.0); Lymphocytes # (A) 2.14 X 10*3/uL (0.90-5.00); Lymphocytes % (A) 33.3 %; MCH 29.5 pg (27.0-32.0); MCHC 33.2 g/dL (32.0-37.0); MCV 88.9 FL (80.0-97.0); Mean Platelet Volume 10.1 FL (9.5-12.2); Monocytes # (A) 0.53 X 10*3/uL (0.20-1.00); Monocytes % (A) 8.2 %; NRBC Per 100 WBC 0 X 10*3/uL (0.00-0.01); Neutrophils # (A) 3.47 X 10*3/uL (1.80-7.70); Platelet Count 303 X 10*3/uL (140-440); RBC 4.51 X 10*6/uL (4.10-5.20); RDW 13.5 % (11.5-14.5); WBC 6.43 X 10*3/uL (4.50-10.00)
[2023-11-12 19:01] LABS: ALT 19 U/L (8-44); AST 18 U/L (13-35); Albumin 4.6 g/dL (3.8-4.9); Albumin/Globulin Ratio 2.19 Ratio (1.60-3.17); Alkaline Phosphatase 95 U/L (41-126); BUN/Creat Ratio 23.57 Ratio (12.00-20.00); Blood Urea Nitrogen 16.5 mg/dL (9.0-27.0); Calcium 9.6 mg/dL (8.7-10.3); Carbon Dioxide 24.8 mmol/L (21.6-31.8); Chloride 104 mmol/L (96-109); Chol/HDL Ratio 5.85 Ratio; Globulin 2.1 g/dL (1.6-3.3); Glucose 104 mg/dL (70-110); LDL Cholesterol,Calculated 124.5 mg/dL (0.0-131.0); Potassium 4.7 mmol/L (3.5-5.5); Sodium 141 mmol/L (135-145); Total Bilirubin 0.2 mg/dL (0.3-1.2); Total Protein 6.7 g/dL (6.2-8.2)
== END | disposition home or self-care (01) ==
LOC: LABWHC1 12:54
PROVIDERS: ATTEND Family Medicine
DX: Z01.812 Encounter for preprocedural laboratory examination (principal); E78.00 Pure hypercholesterolemia, unspecified; E55.9 Vitamin D deficiency, unspecified; R73.03 Prediabetes
CPT/HCPCS: 36415; 80053; 80061; 81001; 82306; 83036; 85025; 85610; 85730

== ENCOUNTER → 2023-11-25 | Outpatient (CLI) | payer OTHER | END | disposition home or self-care (01) | LOC: LABPAT 16:27 | PROVIDERS: ATTEND Orthopaedic Surgery | DX: Z01.812 Encounter for preprocedural laboratory examination (principal); M51.36 Other intervertebral disc degeneration, lumbar region; M48.061 Spinal stenosis, lumbar region without neurogenic claudication; Z22.322 Carrier or suspected carrier of Methicillin resistant Staphylococcus aureus | CPT/HCPCS: 36415; 86850; 86900; 86901; 87070 ==

== ENCOUNTER → 2023-11-27 | Outpatient (CLI) | payer OTHER ==
--- NOTE | 2023-11-27 17:22 | CA ---
Transthoracic Echo Report Name: Joleen Daugherty Age: 57 Gender: F : 1965 Exam Date: 11/27/2023 15:56 Exam Location: [facility] Ht (in): 61 Wt (lb): 178 Ordering Physician: Amadeo Aguilera DO Attending/Referring Phys: Amadeo Aguilera DO Game Programer Ashley Curiel RDCS Procedure CPT: Indications: R00.2 palpitations Cardiac Hx: Technical Quality: Fair Contrast 1: Total Dose (mL): Contrast 2: Total Dose (mL): MEASUREMENTS (Male / Female) Normal Values 2D ECHO LV Diastolic Diameter PLAX 4.4 cm 4.2 - 5.9 / 3.9 - 5.3 cm LV Systolic Diameter PLAX 3.0 cm IVS Diastolic Thickness 1.2 cm 0.6 - 1.0 / 0.6 - 0.9 cm LVPW Diastolic Thickness 1.2 cm 0.6 - 1.0 / 0.6 - 0.9 cm LV Relative Wall Thickness 0.5 RV Internal Dim ED PLAX 3.0 cm LA Systolic Diameter LX 2.9 cm 3.0 - 4.0 / 2.7 - 3.8 cm LV Diastolic Volume MOD BP 74.3 cm??? 67 - 155 / 56 - 104 cm??? LV Systolic Volume MOD BP 21.5 cm??? 22 - 58 / 19 - 49 cm??? LV Ejection Fraction MOD BP 71.0 % >= 55 % LV Cardiac Index MOD BP 2056.2 cm???/min???m??? LV Diastolic Volume MOD 4C 71.5 cm??? LV Systolic Volume MOD 4C 20.3 cm??? LV Ejection Fraction MOD 4C 71.6 % LV Cardiac Index MOD 4C 1994.9 cm???/min???m??? LV Diastolic Length 4C 7.8 cm LV Systolic Length 4C 7.0 cm LV Diastolic Volume MOD 2C 73.8 cm??? LV Systolic Volume MOD 2C 23.5 cm??? LV Ejection Fraction MOD 2C 68.2 % LV Cardiac Index MOD 2C 1960.6 cm???/min???m??? LV Diastolic Length 2C 8.3 cm LV Systolic Length 2C 7.0 cm LA Volume 35.9 cm??? 18 - 58 / 22 - 52 cm??? LA Volume Index 18.9 cm???/m??? 16 - 28 cm???/m??? M-MODE Aortic Root Diameter MM 3.5 cm AV Cusp Separation MM 2.2 cm DOPPLER AV Peak Velocity 123.1 cm/s AV Peak Gradient 6.1 mmHg MV Area PHT 2.4 cm??? Mitral E Point Velocity 68.1 cm/s Mitral A Point Velocity 87.4 cm/s Mitral E to A Ratio 0.8 MV Deceleration Time 310.6 ms FINDINGS Left Ventricle Left ventricular ejection fraction is estimated at 60-65 %. Left ventricular cavity size normal. Mildly increased septal wall thickness. Mildly increased posterior wall thickness. Normal left ventricular wall motion. Right Ventricle Normal right ventricular size and function. Unable to estimate the right ventricular systolic pressure. Right Atrium Normal right atrial size. No right atrial thrombus or mass seen. Left Atrium Normal left atrial size. No left atrial thrombus or mass present. Mitral Valve Structurally normal mitral valve. Trace mitral regurgitation. No evidence for mitral valve prolapse. No mitral stenosis. Aortic Valve Trileaflet aortic valve. No aortic valve stenosis or regurgitation. Tricuspid Valve Structurally normal tricuspid valve. No tricuspid prolapse. Pulmonic Valve Structurally normal pulmonic valve. Trace pulmonic regurgitation. Pericardium No pericardial effusion. No pleural effusion. Aorta Normal size aortic root and proximal ascending aorta. CONCLUSIONS Normal LV function Previewed by: Dr. Emanuel Tristan MD (Electronically Signed) Final Date: 27 November 2023 17:21
== END | disposition home or self-care (01) ==
LOC: RADECHMAIN 15:41
PROVIDERS: ATTEND Family Medicine
DX: R00.2 Palpitations (principal)
CPT/HCPCS: 93306

== ENCOUNTER 2023-11-30 05:44 | Observation (INO) | payer OTHER ==
--- NOTE | 2023-11-29 09:07 | P.HPOR ---
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 I reviewed the patient's clinical syndrome, physical findings, and imaging studies during the appointment today. It is my impression that the patient has a diagnosis of. 1. 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 SACROILITIS 3. LOW BACK PAIN WITH CLAUDICATION 16 points review of systems completed and as stated in HPI, all other systems reviewed are negative. PAST TREATMENTS: PAST IMAGING: - Yes TRAUMA RELATED: - No WORK RELATED: -NO PT IN LAST 6 MONTHS: - Yes; no relief PHYSICIAN DIRECTED HOME EXERCISE PROGRAM: - Yes; no relief ACTIVITY MODIFICAITON: - Yes; limits BLPPT motions MEDICATIONS: - ALTERNATIVE INTERVENTIONS (CHIROPRACTIC, ACCUPUNCTURE, MASSAGE, RICE): - Yes (home heat/ice therapies & rest); mild, temporary relief BRACING: - No INJECTIONS (EMERALD, TF, RFA): - Yes; x1 right SIJ injection on 08/17/2023 / x1 L3-4 EMERALD in early August 2023 MEDICAL HISTORY: Past Medical History: Reviewed, see appropriate section of the chart for details. Past Spine Surgical History: None Social History: Reviewed, see appropriate section of the chart for details. Family History: Reviewed, see appropriate section of the chart for details. 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 Do not break, crush, dissolve and/or chew. Rx: Vitamin C 500 mg capsule,extended release Ref: 0 Rx: zinc sulfate 50 mg zinc (220 mg) capsule Ref: 0 Rx: celecoxib 200 mg capsule Ref: 0 Instructions: take 1 capsule (200 mg) by oral route BID Rx: cyclobenzaprine 5 mg tablet Ref: 0 Rx: celecoxib 200 mg capsule Ref: 0 Instructions: take 1 capsule by mouth twice a day Rx: cyclobenzaprine 5 mg tablet Ref: 0 PHYSICAL EXAM: General: AOX3, NAD, Well hydrate, Well nourished HEENT: No lumps or masses Extremities: No color changes, no pooling INTEGUMENT: Appearance:Normal color and turgor Surgical Incisions: None Hairy Patches: ABSENT Dorsal Skin Dimples: Normal [employer] spots: ABSENT PALPATION: TTP Midline:NO Paracervical:NO Parathoracic:NO Paralumbar:NO SIJ TESTING: TTP (RIGHT) [place] Finger: + FABER4:+ Compression:+ | Distraction:- Thigh thrust:- | Hip thrust: + POSTURAL BALANCE: Coronal:BALANCED Sagittal:BALANCED Shoulder height: LEVEL Pelvic Girdle: LEVEL ROM AND APPEARANCE: Neck:UNRESTRICTED Lumbar:UNRESTRICTED Shoulders: Symmetrical Hips: Symmetrical Knees: Symmetrical Hands: Symmetrical Feet: Symmetrical VASCULAR STATUS: RUE- 2 LUE-2 RLE-2 LLE-2 Edema: NONE NEUROLOGICAL EXAMINATION: Mental Status: Awake, alert, oriented fully with normal attention, concentration and memory. Fluent appropriate speech. CRANIAL NERVES: I: Olfactory not tested. II: Visual acuity normal, no visual field deficit noted with confrontation. III,IV: Normal pupillary reflexes & intact extraocular movements without nystagmus. V,: Intact symmetrical facial sensation. VII: Intact symmetrical facial motor movementVIII: Hearing intact. IX,X: Intact gag, swallow, & normal voice. XI: Sternocleidomastoid, trapezius function intact. XII: Tongue midline with normal movements. 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 YES -Dysdiadochokinesia examination negative bilaterally? YES -Toe heel walk / heel-toe walk intact while maintaining satisfactory balance? YES -Squatting/straightening w/o assistance to a min of 60 degree knee flexion? YES -Single leg stance: ABLE -Trendelenburg sign NEGATIVE B/L Spine Surgery Risk Review Ms. Daugherty is presenting for evaluation of low back and right lower extremity pain. It was my pleasure to have seen and examined Ms. Daugherty. In our visit today we have had a chance to go over subjective complaints, physic al examination findings and treatments including the natural course history without intervention and various interventional options. The patients imaging demonstrates: XRAY DATE: 05/29/23 LOCATION: [facility]: LUMBAR MULTIVIEW - Images re-reviewed with the patient today. This demonstrates postsurgical changes at L4-L5 with T12 construct in place. There is trace anterolisthesis still present at L4-L5 grade 1. Interbody device seems to be in place along with screws. Reasonable posterior lateral fusion is suspected however interbody fusion appears to be minimal. There is adjacent segment disease at L3-L4 with retrolisthesis L3 on L4 with increased mobility of L3 and L4 during flexion and extension. There are no fractures noted there is facet arthrosis over noted. Disc height collapse posteriorly noted with fishmouthing anteriorly. Flattening of the normal lumbar lordosis is evident. MRI of the Lumbar Spine Date: 06/12/2023 Location: [facility] Contrast: N - Images re-reviewed with the patient today. This demonstrates previously stated posterior surgical changes with T wave construct at L4-L5. There is potential pseudoarthrosis within the anterior column due to interbody not taking. There is adjacent segment disease at L3-L4 with large disc bulge and herniation causing moderate to severe central stenosis. There is ligamental hypertrophy as well as facet hypertrophy L3-L4 causing moderate to severe central stenosis and bilateral foraminal stenosis. There is apparent residual disc herniation L4-L5 which is noted in causing some central stenosis distally. There is reasonable decompression over this area of previous surgery. No areas of hardware loosening or failure noted no lesions. No fractures noted. On physical exam, Ms. Daugherty demonstrates: A gradual return of right-sided low back pain that radiates down into the posterior and lateral aspect of the right lower extremity with a burning, throbbing quality. She denies any numbness or tingling at this time. She states these symptoms have been ongoing since a fall down the stairs that occured on 05/16/2023. She states her symptoms worsen after prolonged sitting or standing. I have explained to the patient that as their condition progresses it will cause further neurological deficits and eventual paralysis. Based on the patients imaging, physical exam, and the rapid progression and disabling nature of their symptoms, at this time I recommend surgery in the form of a: L3-5 revision decompression and fusion. I discussed the risk and benefits of this procedure at length with Ms. Daugherty. The patient agreed to considered pursuing the procedure abovementioned. Prior to surgery, she should follow up with her PCP (Cardio, ID, IM etc) for clearance. Questions were invited and answered, and the patient wishes to proceed as outlined below. Currently, I am recommendin.L3-5 revision decompression and fusion 2.Review of surgical risks and benefits as well as an educational packet on the proposed surgical procedure. Risks: All surgical procedures come with inherent risks, including those related to positioning, anesthesia, intraoperative findings, and postoperative complications. It is important to understand that surgery does not come with any guarantee of a successful outcome as complications and adverse events are always possible. The patient was given a handout in office today discussing the surgical procedure and risks associated with the intervention, both of which were discussed with the patient. These risks include but are not limited to the following: * Experiencing same, different or even worse symptoms in back, neck, arms, or legs compared to before surgery. Requiring further surgery or other forms of treatment presently or at some time in the future at same or other levels of the intended spine surgery. On an extreme but fortunately relatively rare basis severe complication such as blindness, stroke, heart attack, temporary and/or permanent nerve injury, paralysis, coma, or may occur, sometimes without known explanation. Surgical complications may include but are not limited to risk of infection, fluid accumulation in the surgical dissection site, including a seroma or hematoma, that requires additional surgery, wound drainage, bleeding, new numbness or weakness, vision changes/loss, spinal fluid leakage, non-healing and/or infected incision, headaches, difficulty or inability to swallow, hoarseness, hemopneumothorax, pneumothorax, impotence, retrograde ejaculation, vaginal dryness; injury to nerves, spinal cord, blood vessels, lymphatics or other vital organs (i.e., bowel injury, injury to the great vessels); heterotopic bone formation; complications related to the hardware such as screws, rods, cages including misplaced hardware, device failure, instrumen tation at the wrong spine level, hardware fracture/breakage, or hardware loosening; vertebral failure of the spinal column above or below the newly placed hardware; retained surgical instrumentations or devices and the need for further surgery. * Medical risks of the planned spine surgery include but are not limited to generalized Infections to the whole body or local areas outside of the surgi adriana site (sepsis), heart attack, bleeding, anaphylaxis, meningitis, seizure, epilepsy, hearing loss, burn angelo, laceration of the head or other areas of the body, bruising, hypersensitivity of the skin, bladder over distension; allergic reaction; shoulder injury related to positioning; fat, blood and air clots to other areas of the body like heart, lungs, brain; failure of internal organs such as lungs, kidneys, liver and excessive bleeding. If blood transfusions are necessary, note that transfusions may cause intolerance reactions such as anaphylaxis or other complex reactions. Despite best efforts, the results of spine surgery might not heal in terms of bone, soft tissues such as skin, fascia, ligaments, and joints. Additionally, in order to achieve best possible results, spine surgery may be carried out beyond the initially planned levels and involve decompression, fusion including insertion of hardware at levels other than the original intended area of surgical interest change some portions of the procedure in order to ensure the best possible outcomes. With spine surgery and spinal fusion, there are different off label uses of instrumentation (devices, implants and hardware) as well as biological substances (bone morphogenic proteins, demineralized bone matrix) as well as using extra bone from allograft sources (i.e. cadaver bone) or autograft (iliac crest bone, ribs, or the spine itself). The patient has been given information about these practices and their inherent risks and benefits. [facility] is an educational center that serves as a training facility for neurosurgical and orthopedic HYBRID TECHNOLOGIST and Nursing students. Physician assistants are medically trained surgical providers who function in the outpatient, inpatient, and operating room setting under the direct supervision of the attending surgeon. [facility] has multiple operating rooms with single and overlapping rooms running daily. They currently function under the required guidelines as produced by the [facility] Finance Committee with regards to the overlapping rooms and will continue to comply with changes to this policy as they occur. The requirements include and are complied with as follows: (1) the critical portions of the overlapping rooms will not occur at the same time, (2) the attending physician will be physically present during the critical portions of the proced ure and immediately available during the entire case, and (3) a back-up attending is designated should the primary attending not be immediately available. The patient has had a chance to review all the listed information, has been given print outs detailing this information, and has had all his/her questions answered to their satisfaction. It was my pleasure to have seen and examined Ms. Daugherty. In our visit today we have had a chance to go over my understanding of our patient's current condition, the natural course history without intervention and various interventional options. Questions were invited and answered, and the patient wishes to proceed as outlined above. I have seen and examined the patient for 25 minutes and we have spent more than 50% of the time in repeat and detailed coun seling about the patient's condition, its natural course history with out and as much as can be predicted with surgery and re-review of various surgical treatment options. In conclusion, Ms. Daugherty requested we proceed with the above suggested surgery and are willing to accept risks and limitations of the suggested surgery as nature of the disease process and our best attempts at treatment for the condition. Thank you again for allowing us to be part of your patient's care. Please don't hesitate to contact me if you have any further questions. Signed and authenticated by: [employer] P:\\\\ppart\\\\[id number]\\\\[id number] \\[id number]\\\\[id number]\\\\[id number]\\\\[id number]\\\\[id number] \\d Jim Wolf DO [facility] Orthopedics and Spine Complex and Minimally Invasive Spine Surgery [address] [place] [address] FOLLOW UP: Post Procedure PLAN AT NEXT VISIT: X-rays (AP/LAT) of lumbar spine PATIENT EDUCATION: Medications Reviewed: YES In our visit today Ms. Daugherty and I have had a chance to go over my understanding of the patient's current condition, the natural course history without intervention and various interventional options. Questions were invited and answered, and the patient wishes to proceed as outlined above. I will be sure to keep you updated after Ms. Daugherty returns here for further follow-up. Thank you again for your referral. Please do not hesitate to contact me if you have any further questions. Signed and authenticated by: Jim Wolf DO [facility] and Spine Complex and Minimally Invasive Spine Surgery [address] [place], [place] [id number] . This message is confidential, intended only for the named recipient(s) and may contain information that is privileged or exempt from disclosure under applicable law. If you are not the intended recipient(s), you are notified that the dissemination, distribution or copying of this information is prohibited. If you received this message in error, please notify the sender then delete this message. Past Medical History Past Medical History: Atrial Fibrillation, Diabetes Mellitus, Osteoarthritis (OA), Thyroid Disorder Additional Past Medical History / Comment(s): Hx diverticulitis, migraines, chronic back pain, couple episodes of passing out-thought to be related to low blood sugar, hx. irregular heart rate @times-takes propranolol for, one time episode of a-fib-had testing, no further problems, diet controlled diabetic- considered "pre-diabetic", has daith piercing right ear for migraines History of Any Multi-Drug Resistant Organisms: None Reported Past Surgical History: Back Surgery, Breast Surgery, Cholecystectomy, Ear Surgery, Hysterectomy Additional Past Surgical History / Comment(s): lt breast lumpectomy, PAIN CLINIC PROCEDURES, left ear surg. Past Anesthesia/Blood Transfusion Reactions: Postoperative Nausea & Vomiting (PONV) Smoking Status: Never smoker - Past Family History Mother Family Medical History: Cancer, Deep Vein Thrombosis (DVT), Myocardial Infarction ([place]) Additional Family Medical History / Comment(s): breast cancer Father Family Medical History: Myocardial Infarction ([place]) Sister(s) Family Medical History: Cancer, Coronary Artery Disease (CAD), Deep Vein Thrombosis (DVT), Pulmonary Embolus Additional Family Medical History / Comment(s): 3 SISTERS HAD CANCER. 1 SISTER HAD DVT Medications and Allergies Home Medications Medication Instructions Recorded Confirmed Type Amitriptyline HCl 25 mg PO HS 06/28/15 11/27/23 History Loratadine [Claritin] 10 mg PO HS 06/28/15 11/27/23 History Propranolol HCl [Propranolol HCl 160 mg PO HS 06/28/15 11/27/23 History ER] Acetaminophen [Tylenol Arthritis] 650 mg PO BID PRN 12/09/16 11/27/23 History Thyroid, Pork [[place] Thyroid] 60 mg PO QAM 10/24/19 11/27/23 History Aspirin 81 mg PO DAILY 02/08/21 11/27/23 History Celecoxib [CeleBREX] 200 capsule PO BID 07/23/23 11/27/23 History Cyclobenzaprine [Flexeril] 5 mg PO HS 07/23/23 11/27/23 History Ascorbic Acid [Vitamin C] 1,000 mg PO DAILY 11/27/23 11/27/23 History Cholecalciferol [Vitamin D3 (25 25 mcg PO DAILY 11/27/23 11/27/23 History Mcg = 1000 Iu)] HYDROcodone/APAP 7.5-325MG [[place] 1 tab PO Q6HR PRN 11/27/23 11/27/23 History 7.5-325] Magnesium 200 mg PO DAILY 11/27/23 11/27/23 History Progesterone, Micronized 200 mg PO HS 11/27/23 11/27/23 History [Progesterone] Zinc Gluconate [Zinc] 50 mg PO DAILY 11/27/23 11/27/23 History Allergies Allergy/AdvReac Type Severity Reaction Status Date / Time sumatriptan [From Imitrex] Allergy left side Verified 11/27/23 11:23 went numb sumatriptan succinate Allergy left side Verified 11/27/23 11:23 [From Imitrex] went numb topiramate [From Topamax] Allergy finger and Verified 11/27/23 11:23 toes go numb Physical Examination Osteopathic Statement: *. No significant issues noted on an osteopathic structural exam other than those noted in the History and Physical/Consult.
[~2023-11-30 05:44] MED LIST changes: -ACETAMINOPHEN TAB 500 MG TAB PO ONE; -ALPRAZolam 0.25 MG TAB PO PRN; -ALPRAZolam 0.5 MG TAB PO PRN; -ASPIRIN 325 MG TAB PO STA; -ATORVASTATIN 80 MG TAB PO STA; +GABAPENTIN 300 MG CAP PO PRN; -HEPARIN SODIUM 1,000 UN/ML (10ML VL) IV ONE; -HEPARIN SODIUM 1,000 UN/ML (10ML VL) ONE; -IOPAMIDOL-370 125ML BTL INJ ONE; -LIDOCAINE 1% INJ 10MG/ML (20 ML MDV) ONE; -LIDOCAINE 1% INJ 10MG/ML (20 ML MDV) SQ ONE; -MIDAZOLAM 2 MG/2 ML VIAL IV ONE; -NITROGLYCERIN SL TABS 0.4 MG TAB SUBLINGUAL PRN; +ONDANSETRON 4 MG/2 ML VIAL IVP PRN; -RX INFO: IV CONTRAST WAS GIVEN 1 EACH MISC MISCELLANE PRN; -SODIUM CHLORIDE 0.9% 1,000 ML IV ONE; -SODIUM CHLORIDE 0.9% 1,000 ML IV SCH; -SODIUM CHLORIDE 0.9% 1,000 ML in EMPTY BAG 1 BAG IV SCH; +TRANEXAMIC 1,000 MG/100ML-NACL 1,000 MG in SALINE 1 100ML.BAG IVPB PRN; -VERAPAMIL 2.5 MG/ML 2 ML AMP ONE; -VERAPAMIL SYRINGE (5 MG/10 ML) INTRAARTER ONE; -fentaNYL (PF) 50 MCG/ML 2 ML AMP IV ONE; -fentaNYL (PF) 50 MCG/ML 2 ML AMP ONE
[2023-11-30] MEDS: IV FLUID CONTINUATION 1,000 ML IV ONE ×3 (06:17→14:44)
[2023-11-30 06:45] LABS: Glucose,Whole Blood 130 mg/dL (70-110)
[2023-11-30] MEDS: LACTATED RINGERS 1,000 ML IV SCH (06:51)
[2023-11-30] MEDS: DEXAMETHASONE SOD PHOSPHATE 4 MG/ML 1 ML VIAL IV ONE (06:56)
[2023-11-30] MEDS: ACETAMINOPHEN TAB 500 MG TAB PO PRN (06:56)
[2023-11-30] MEDS: ONDANSETRON 4 MG/2 ML VIAL IVP ONE (06:56)
[2023-11-30] MEDS: SCOPOLAMINE 1 MG/72 HR PATCH TRANSDERM STA (07:08)
[2023-11-30] MEDS: MIDAZOLAM 2 MG/2 ML VIAL IV ONE (07:09)
[2023-11-30] MEDS ORDERED: FUROSEMIDE 10 MG/ML 2 ML VIAL ONE (07:25)
[2023-11-30] MEDS ORDERED: ePHEDrine 50 MG/ML 1 ML VIAL ONE (07:25)
[2023-11-30] MEDS ORDERED: PHENYLEPHRINE 10 MG/ML VIAL ONE (07:25)
[2023-11-30] MEDS ORDERED: HYDROmorphone (PF) 1 MG/ML ONE (07:25)
[2023-11-30] MEDS ORDERED: fentaNYL (PF) 50 MCG/ML 2 ML AMP ONE (07:25)
[2023-11-30] MEDS ORDERED: TRANEXAMIC 1,000 MG/100ML-NACL PREMIX BAG ONE (07:25)
[2023-11-30] MEDS ORDERED: SUCCINYLCHOLINE CHLORIDE 200 MG/10 ML VIAL IV ONE (07:25)
[2023-11-30] MEDS ORDERED: NEOSTIGMINE 1 MG/ML 10 ML VIAL ONE (07:25)
[2023-11-30] MEDS ORDERED: DEXAMETHASONE SOD PHOSPHATE 10 MG/ML 1 ML VIAL ONE (07:25)
[2023-11-30] MEDS ORDERED: PROPOFOL 10 MG/ML 20 ML VIAL IV ONE (07:25)
[2023-11-30] MEDS ORDERED: MIDAZOLAM 2 MG/2 ML VIAL ONE (07:25)
[2023-11-30] MEDS ORDERED: LIDOCAINE 1% INJ 10MG/ML (20 ML MDV) ONE (07:25)
[2023-11-30] MEDS ORDERED: ALBUMIN HUMAN 5% (12.5gm) 250 ML BOTTLE IVPB ONE (07:25)
[2023-11-30] MEDS ORDERED: ONDANSETRON 4 MG/2 ML VIAL ONE (07:25)
[2023-11-30] MEDS ORDERED: ROCURONIUM 10 MG/ML (5 ML VIAL) IV ONE (07:25)
[2023-11-30] MEDS ORDERED: KETAMINE HCL IN 0.9 % NACL 50 MG/5 ML SYRINGE ONE (07:25)
[2023-11-30] MEDS ORDERED: GLYCOPYRROLATE 0.2 MG/ML 2 ML VIAL ONE (07:25)
[2023-11-30] MEDS: LACTATED RINGERS 1,000 ML IV ONE (08:00)
[2023-11-30] MEDS: ceFAZolin 3,000 MG in SODIUM CHLORIDE 0.9% IRRIGATIO 3,000 ML IRRIGATION ONE (08:11)
[2023-11-30] MEDS: GENTAMICIN 80 MG in SODIUM CHLORIDE 0.9% IRRIGATIO 3,000 ML IRRIGATION ONE (08:11)
[2023-11-30] MEDS: THROMBIN (BOVINE) 5,000 UNIT VIAL TOPICAL ONE (08:36)
[2023-11-30] MEDS: VANCOMYCIN 1,000 MG VIAL MISCELLANE ONE (10:19)
--- NOTE | 2023-11-30 10:53 | P.OP ---
Date of Procedure: 11/30/23 Preoperative Diagnosis: Current Active Problems Lumbar spinal stenosis due to adjacent segment disease after fusion procedure (Acute) Lumbar adjacent segment disease with spondylolisthesis (Acute) Adjacent segment disease of lumbar spine with history of fusion procedure (Acute) Lumbar spinal stenosis (Acute) Radiculopathy with lower extremity symptoms (Acute) Epidural lipomatosis (Acute) Lumbar spondylosis with myelopathy (Acute) Postoperative Diagnosis: Current Active Problems Lumbar spinal stenosis due to adjacent segment disease after fusion procedure (Acute) Lumbar adjacent segment disease with spondylolisthesis (Acute) Adjacent segment disease of lumbar spine with history of fusion procedure (Acute) Lumbar spinal stenosis (Acute) Radiculopathy with lower extremity symptoms (Acute) Epidural lipomatosis (Acute) Lumbar spondylosis with myelopathy (Acute) Procedure(s) Performed: -L3-4 POSTEROLATERAL AND INTERBODY FUSION -L4-5 REVISION POSTEROLATERAL INSTRUMENTED FUSION -L3-L5 INSTRUMENTATION -L3-4 BILATERAL LAMINECTOMY, COMPLETE FACETECTOMY AND FORAMINOTOMY FOR DECOMPRESSION OF NEURAL ELEMENTS AND CAGE PLACEMENT -L4-5 REVISION BILATERAL LAMINECTOMY MEDIAL FACETECTOMY AND FORAMINOTOMY -INSERTION OF BIOMECHANICAL DEVICE, CAGE, L3-4 -EXPLORATION OF FUSION L4-5 -REMOVAL OF HARDWARE L4-5, NECESSARY FOR PLACEMENT OF NEW HARDWARE -USE OF [employer] NAVIGATION FOR SCREW PLACEMENT USE OF IONM ALL SCREWS TESTING > 13 mA Implants: -JONATHAN EVEREST RODS AND SCREWS -GLOBUS SABLE CAGE 9-16, LONG, 8 DEG -MAGNATOS, CONTOUR, ALLOCELL, ARTHROCELL, AUTOGRAFT. Anesthesia: GETA Surgeon: Jim Wolf Wet Suit Gluer #1: Niko Carrington (WAS PRESENT AND ASSISTED WITH ALL ASPECTS OF THE CASE FROM POSITION TO DRESSING PLACEMENT) Estimated Blood Loss (ml): 250 IV fluids (ml): 2,500 Urine output (ml): 430 Pathology: none sent Condition: stable Disposition: PACU Indications for Procedure: Ms. Daugherty is presenting for evaluation of low back and right lower extremity pain. It was my pleasure to have seen and examined Ms. Daugherty. In our visit today we have had a chance to go over subjective complaints, physical examination findings and treatments including the natural course history without intervention and various interventional options. The patients imaging demonstrates: XRAY DATE: 05/29/23 LOCATION: [facility] REGION: LUMBAR MULTIVIEW - Images re-reviewed with the patient today. This demonstrates postsurgical changes at L4-L5 with T12 construct in place. There is trace anterolisthesis still present at L4-L5 grade 1. Interbody device seems to be in place along with screws. Reasonable posterior lateral fusion is suspected however interbody fusion appears to be minimal. There is adjacent segment disease at L3-L4 with retrolisthesis L3 on L4 with increased mobility of L3 and L4 during flexion and extension. There are no fractures noted there is facet arthrosis over noted. Disc height collapse posteriorly noted with fishmouthing anteriorly. Flattening of the normal lumbar lordosis is evident. MRI of the Lumbar Spine Date: 06/12/2023 Location: [facility] Contrast: N - Images re-reviewed with the patient today. This demonstrates previously stated posterior surgical changes with T wave construct at L4-L5. There is potential pseudoarthrosis within the anterior column due to interbody not taking. There is adjacent segment disease at L3-L4 with large disc bulge and herniation causing moderate to severe central stenosis. There is ligamental hypertrophy as well as facet hypertrophy L3-L4 causing moderate to severe central stenosis and bilateral foraminal stenosis. There is apparent residual disc herniation L4-L5 which is noted in causing some central stenosis distally. There is reasonable decompression over this area of previous surgery. No areas of hardware loosening or failure noted no lesions. No fractures noted. On physical exam, Ms. Daugherty demonstrates: A gradual return of right-sided low back pain that radiates down into the posterior and lateral aspect of the right lower extremity with a burning, throbbing quality. She denies any numbness or tingling at this time. She states these symptoms have been ongoing since a fall down the stairs that occured on 05/16/2023. She states her symptoms worsen after prolonged sitting or standing. I have explained to the patient that as their condition progresses it will cause further neurological deficits and eventual paralysis. Based on the patients imaging, physical exam, and the rapid progression and disabling nature of their symptoms, at this time I recommend surgery in the form of a: L3-5 revision decompression and fusion. I discussed the risk and benefits of this procedure at length with Ms. Daugherty. The patient agreed to considered pursuing the procedure abovementioned. Prior to surgery, she should follow up with her PCP (Cardio, ID, IM etc) for clearance. Questions were invited and answered, and the patient wishes to proceed as outlined below. Currently, I am recommendin.L3-5 revision decompression and fusion Description of Procedure: L3-5 revision decompression fusion open The patient was seen and examined in the preoperative area. All preoperative protocols were followed. Informed consent was obtained, risks and benefits of the procedure were discussed at length. Risks including bleeding infection damage to the surrounding tissue and risk of reoperation were discussed with the patient. Risk of anesthesia up to and including was discussed with the patient. These are outlined in the risk review. They were willing to accept these risks and all the risks of surgery. The patient was given a weight-based dose of antibiotics in the form of 2 g Ancef. The patient was seen and evaluated by the anesthesia team who deemed them fit for surgery. The site was marked, the patient was willing to proceed with the procedure. The patient was transferred to the operative suite by the Department of anesthesia. They were then drifted off to sleep by the department anesthesia and GETA was performed. The patient tolerated this well. Harris catheter was placed by nursing staff, a-traumatically. Once confirmation of lines and ventilation the patient was transferred to a prone Gunnar table very carefully. All bony prominences including wrists, elbows, axilla, chest, hips, and thighs, and feet were padded very well. Special attention was paid to the genitalia, and these were padded accordingly. SCDs were placed on bilateral lower extremities and were connected. Arms were well padded and placed on arm boards up and out in the 90/90 position. Once in position, again we confirmed good ventilation capabilities and that lines were running appropriately. The patients Lumbar spine was then exposed. 1010s were placed outlining the incision site. Standard alcohol was used to clean the incision site and allowed to dry. C-arm was used to needle localize the pedicles at L3-5 and bio-matthew the patient and confirm level for incision which was marked with a skin marker. Operative briefing was performed with all teams and everyone in agreement to proceed. The patient was then prepped and draped in a normal sterile fashion. Timeout was then performed, and all parties agreed with the procedure to be performed. Midline skin incision was made over the previously bio-marked area and dissection taken down over the SP of L3-L5. L3-5 was taken out over facet joints and TPs and a penfield 4 used to matthew the L4 pedicle. Lateral image used to confirm levels. Once confirmed, screws were removed from L4-5 b/l along with rods. The L4 screws were loose b/l and when removed there was still motion at this segment. The fusion was explored and there was minimal bone formation posteriorly. We then proceeded to place screws b/l at pedicles from L3-5 using Lateral C arm and free hand technique. Windber was used to create a bar pilot hole, gear shift passed then a ball tip feeler to confirm within the pedicles. Screw was measured and placed. Once screws were placed they were confirmed to be in good position using AP and Lateral fluoroscopy. The wound was then irrigated. Screws were tested and all tested above 20 mA. We then proceeded to decompression and cage placement. Attention was then turned to interbody fusion at L3-4. Bilateral laminectomy, complete facetectomy and foraminotomy performed at L3-4 using high speed cruz and Kerrison rongeur. The ligamentum was removed and the dural sac decompressed. Exiting and traversing roots visualized and decompressed. Neural elements were then protected, and disc space accessed with an osteotome. Sequential shaving then done under lateral imaging and complete discectomy performed using shirely, pituitary and curette. Once good bleeding endplates accomplished and good height church with trials, a combination of autograft, allograft and synthetic placed anterior in the disc space. The cage was then selected and impacted into place under lateral imaging. The cage was then expanded restoring height, lordosis and alignment. The cage was backfilled with bone graft through a funnel. The coat operator insulator was removed and the area inspected. Good cage placement, stable cage and no injuries. Area was irrigated copiously, and meticulous hemostasis achieved. The tubular retractor was then removed under direct visualization. Attention was then turned to revision decompression at L4-5. Bilateral laminectomy, complete facetectomy and foraminotomy performed at L4-5 using high speed cruz and Kerrison rongeur. The ligamentum was removed and the dural sac decompressed. Exiting and traversing roots visualized and decompressed. Area was irrigated copiously, and meticulous hemostasis achieved. Rods were then sized and selected and placed into L5 screws b/l. Set screws locked these in place and then sequentially reduced into L4 and L3 b/l for reduction of listhesis. This was accomplished. Set screws were then all placed and final tightened. A cross link was selected and placed and final tightened. TPs were then decorticated with a high speed cruz. The wound was irrigated with 3L acne irrigation, 3L gentamicin irrigation, 1L Irricept, 1L Betadine and 3L NSS. Surgicel was placed over the dura. Autograft and MagnatOs then placed in the posterolateral gutters and impacted into place. Deep drain placed and secured to the skin. 2 g Vancomycin powder placed in the wound bed. Final images confirmed good placement of hardware and good reduction of listhesis as well as church of height and lordosis. Fascia was then closed with #1 PDS. Deep subq closed with 0 Vicryl. Superficial subq closed with 2-0 Vicryl and skin with marianela. Wound edges approximated very well. Wound was then cleaned with alcohol and dried. Wounds dressed with adaptic, 4x4, abd and Medipore tape along with drain sponge and tape. The patient was then transferred off the table back to their hospital bed a- traumatically. Drain continued to hold suction. They were extubated by the department of anesthesia. They were then transferred to PACU in stable condition having tolerated the procedure with no complications.
[2023-11-30] MEDS ORDERED: HYDROcodone/APAP 10-325MG 1 EACH TAB PO PRN (11:02)
[2023-11-30] MEDS ORDERED: HYDROcodone/APAP 5-325MG 1 EACH TAB PO PRN (11:02)
[2023-11-30] MEDS ORDERED: SENNOSIDES-DOCUSATE SODIUM 1 EACH TAB PO PRN (11:02)
--- NOTE | 2023-11-30 11:14 | FL ---
EXAMINATION TYPE: FL guidance operating room, XR lumbar spine 2 or 3V Intraoperative/procedural fluor oscopic services were provided. Total fluoroscopy time is 25 seconds with a total of 7 submitted imag es to PACS. Please see the operative/procedural note for further details. DAP: 5.4053 mGym2 Gycm2 uGym2 cGycm2
[2023-11-30] MEDS: HYDROmorphone 0.5 MG/0.5 ML SYRINGE IVP PRN ×2 (14:37→15:15)
[2023-11-30] MEDS: LABETALOL SYRINGE 5 MG/ML (4 ML SYR) IVP STA (15:43)
[2023-11-30] MEDS: ACETAMINOPHEN TAB 325 MG TAB PO SCH (17:17)
[2023-11-30] MEDS: HYDROmorphone 1 MG/ML 1 ML SYRINGE IVP PRN (18:44)
[2023-11-30] MEDS ORDERED: HYDROcodone/APAP 7.5-325MG 1 EACH TAB PO PRN (20:02)
--- NOTE | 2023-11-30 20:16 | P.CONS ---
History of Present Illness - Reason for Consult Consult date: 11/30/23 Medical management Requesting physician: Jim Wolf - Chief Complaint Lumbar surgery - History of Present Illness This is a pleasant 57-year-old patient who follows with Dr. Aguilera. Chronic stable medical conditions include 1 episode of atrial fibrillation in the remote past, patient was on mounjaro for diabetes. For some insurance reason this was not continued. He did lose weight. Accu-Cheks have been better. She got diarrhea with metformin so could not take the same. Currently diet controlled. Hypothyroid. Osteoarthritis. She has had previous lumbar surgery by Dr. Arias. Symptoms have been getting worse increasing pain with radiculopathy to lower extremity. Including fall. Patient has undergone surgery for the same. Hemovac in place. Harris catheter. Patient daughter at the bedside visiting. Review of systems: GEN.: None EYES: None HEENT: None NECK: None RESPIRATORY: None CARDIOVASCULAR: None GASTROINTESTINAL: IBS GENITOURINARY: None MUSCULOSKELETAL: Back pain LYMPHATICS: None HEMATOLOGICAL: None PSYCHIATRY: None NEUROLOGICAL: [Radicular pain prior to surgery Social history: No smoking alcohol. 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 . Physical examination: VITAL SIGNS: 98.4, 103, 17, 109/64, 96% room air GENERAL: BMI 32.4, reclining bed awake comfortable. EYES: Pupils equal. Conjunctiva venita l. HEENT: External appearance of nose and ears normal, oral cavity grossly normal. NECK: JVD not raised; masses not palpable. HEART: First and second heart sounds are normal; no edema. LUNGS: Respiratory rate normal; clear to auscultation. ABDOMEN: Soft, nontender, liver spleen not palpable, no masses palpable. Harris catheter PSYCH: Alert and oriented x3; mood and affect venita l. MUSCULOSKELETAL:No Clubbing/cyanosis;muscles-grossly intact. Hemovac at the surgical site. NEUROLOGICAL: Cranial nerves grossly intact; no facial asymmetry, power and sensation grossly intact. LYMPHATICS: No lymph nodes palpable in the axilla and neck INVESTIGATIONS, reviewed in the clinical context: November 11: White count 6.4 hemoglobin 13.3 platelets 303 sodium 141 potassium 4.7. 16.5 creatinine 0.7 LDL 124 Assessment plan: -Lumbar spinal stenosis, radiculopathy etc. Lumbar surgery. More details and surgical notes. Hemovac in place -Obesity BMI 32.4 Weight loss measures -Essential hypertension Propranolol ER 160 mg nightly -Hypothyroid [place] Thyroid 60 mg a day -Diabetes mellitus type 2, diet controlled Care was discussed with the patient. Questions answered. Pain medications per primary. Thank you - Past Medical History Past Medical History: Atrial Fibrillation, Diabetes Mellitus, Osteoarthritis (OA), Thyroid Disorder Additional Past Medical History / Comment(s): Hx diverticulitis, migraines, chronic back pain, couple episodes of passing out-thought to be related to low blood sugar, hx. irregular heart rate @times-takes propranolol for, one time episode of a-fib-had testing, no further problems, diet controlled diabetic- considered "pre-diabetic", has daith piercing right ear for migraines History of Any Multi-Drug Resistant Organisms: None Reported Past Surgical History: Back Surgery, Breast Surgery, Cholecystectomy, Ear Surgery, Hysterectomy Additional Past Surgical History / Comment(s): lt breast lumpectomy, PAIN CLINIC PROCEDURES, left ear surg. Past Anesthesia/Blood Transfusion Reactions: Postoperative Nausea & Vomiting (PONV) Past Psychological History: No Psychological Hx Reported Smoking Status: Never smoker Past Alcohol Use History: None Reported Past Drug Use History: None Reported - Past Family History Mother Family Medical History: Cancer, Deep Vein Thrombosis (DVT), Myocardial Infarction (NM) Additional Family Medical History / Comment(s): breast cancer Father Family Medical History: Myocardial Infarction (NM) Sister(s) Family Medical History: Cancer, Coronary Artery Disease (CAD), Deep Vein Thrombosis (DVT), Pulmonary Embolus Additional Family Medical History / Comment(s): 3 SISTERS HAD CANCER. 1 SISTER HAD DVT Medications and Allergies Home Medications Medication Instructions Recorded Confirmed Type Amitriptyline HCl 25 mg PO HS 06/28/15 11/30/23 History Loratadine [Claritin] 10 mg PO HS 06/28/15 11/30/23 History Propranolol HCl [Propranolol HCl 160 mg PO HS 06/28/15 11/30/23 History ER] Acetaminophen [Tylenol Arthritis] 650 mg PO BID PRN 12/09/16 11/30/23 History Thyroid, Pork [[place] Thyroid] 60 mg PO QAM 10/24/19 11/30/23 History Aspirin 81 mg PO DAILY 02/08/21 11/30/23 History Celecoxib [CeleBREX] 200 capsule PO BID 07/23/23 11/30/23 History Cyclobenzaprine [Flexeril] 5 mg PO HS 07/23/23 11/30/23 History Ascorbic Acid [Vitamin C] 1,000 mg PO DAILY 11/27/23 11/30/23 History Cholecalciferol [Vitamin D3 (25 25 mcg PO DAILY 11/27/23 11/30/23 History Mcg = 1000 Iu)] HYDROcodone/APAP 7.5-325MG [[place] 1 tab PO Q6HR PRN 11/27/23 11/30/23 History 7.5-325] Magnesium 200 mg PO DAILY 11/27/23 11/30/23 History Progesterone, Micronized 200 mg PO HS 11/27/23 11/30/23 History [Progesterone] Zinc Gluconate [Zinc] 50 mg PO DAILY 11/27/23 11/30/23 History Allergies Allergy/AdvReac Type Severity Reaction Status Date / Time sumatriptan [From Imitrex] Allergy left side Verified 11/30/23 06:32 went numb sumatriptan succinate Allergy left side Verified 11/30/23 06:32 [From Imitrex] went numb topiramate [From Topamax] Allergy finger and Verified 11/30/23 06:32 toes go numb gabapentin AdvReac Diarrhea Verified 11/30/23 07:01 Milk Containing Products AdvReac Diarrhea Verified 11/30/23 06:32 (Dairy) [Dairy] tree nut [Nut] AdvReac Diarrhea Verified 11/30/23 06:32 wheat AdvReac Diarrhea Verified 11/30/23 06:32 Physical Exam Vitals: Vital Signs Temp Pulse Resp BP Pulse Ox 11/30/23 17:25 98.4 F 103 H 17 109/64 96 11/30/23 16:30 103 H 16 112/58 100 11/30/23 15:30 109 H 16 118/68 100 11/30/23 15:00 104 H 16 125/63 100 11/30/23 14:30 75 16 130/60 100 11/30/23 14:00 67 16 129/70 100 11/30/23 13:30 62 16 138/67 100 11/30/23 13:15 62 16 131/62 100 11/30/23 13:00 98 16 139/67 98 11/30/23 12:45 52 L 16 124/72 100 11/30/23 12:30 52 L 16 112/68 11/30/23 12:15 53 L 16 116/72 11/30/23 12:00 57 L 16 101/50 100 11/30/23 11:45 47 L 16 107/64 100 11/30/23 11:30 71 16 106/56 100 11/30/23 11:15 56 L 16 104/53 100 11/30/23 11:08 96.8 F L 55 L 16 164/53 11/30/23 06:23 97 F L 88 16 119/56 97 Intake and Output 11/30/23 11/30/23 11/30/23 06:59 14:59 22:59 Intake Total 200 3402 120 Output Total 680 1620 Balance 200 2722 -1500 Intake: IV 200 3402 Oral 120 Output: Drainage 20 Back 20 Urine 430 1600 Estimated Blood Loss 250 Other: Voiding Method Indwelling Catheter Weight 77.8 kg 77.8 kg Results Labs: Abnormal Lab Results - Last 24 Hours (Table) 11/30/23 Range/Units 06:41 POC Glucose (mg/dL) 130 H (70-110) mg/dL
[2023-11-30] MEDS: SODIUM CHLORIDE 0.9% 1,000 ML IV SCH (21:35)
[2023-11-30] MEDS: AMITRIPTYLINE HCL 25 MG TAB PO SCH (21:35)
[2023-11-30] MEDS: PROPRANOLOL LA 80 MG CAP.SA.24H PO SCH (21:35)
[2023-11-30] MEDS: HYDROcodone/APAP 10-325MG 1 EACH TAB PO PRN (21:39)
[2023-11-30] MEDS: CYCLOBENZAPRINE 5 MG TAB PO PRN (21:39)
[2023-11-30] MEDS: NON FORMULARY DRUG (Progesterone, Micronized [Progesterone] 200 MG Capsule) PO SCH (22:11)
--- NOTE | 2023-12-01 01:09 | CT ---
EXAM: CT Lumbar Spine Without Intravenous Contrast CLINICAL HISTORY: ITS.REASON CT Reason: s/p revison L3-L5 decompr fusion TECHNIQUE: Axial computed tomography images of the lumbar spine without intravenous contrast. CTDI is 29.8 mGy and DLP is 1060.6 mGy-cm. This CT exam was performed using one or more of the following dose reduction techniques: automated exposure control, adjustment of the mA and/or kV according to patient size, and/or use of iterative reconstruction technique. COMPARISON: 10/08/23 FINDINGS: There are recent postoperative changes of the lumbar spine. Posterior decompression, posterior hardware fixation, and interbody fusion extends from L3-L5. Hardware appears intact. There is no evidence of complication. Bone graft material is noted posteriorly. A subcutaneous drain extends to the laminectomy site. There is postoperative soft tissue swelling, edema, and gas posteriorly at the level of lumbar surgery. Posterior midline skin closure marianela are in place. There is no fracture or subluxation. There is no significant canal or foraminal narrowing. Sacroiliac joints are normally aligned. IMPRESSION: Expected postoperative changes status post recent L3-L5 posterior decompression, posterior hardware fixation, and interbody fusion.
[2023-12-01] MEDS: ASCORBIC ACID 500 MG TAB PO SCH (08:37)
[2023-12-01] MEDS: CHOLECALCIFEROL 25 MCG (1000 IU) TABLET PO SCH (08:37)
[2023-12-01] MEDS: MAGNESIUM OXIDE 400 MG TAB PO SCH (08:38)
[2023-12-01] MEDS: SENNOSIDES-DOCUSATE SODIUM 1 EACH TAB PO SCH (08:38)
[2023-12-01] MEDS: THYROID, PORK 30 MG TAB PO SCH (08:38)
[2023-12-01 08:44] LABS: Basophils # (A) 0.01 X 10*3/uL (0.00-0.10); Basophils % (A) 0.1 %; Eosinophils # (A) 0 X 10*3/uL (0.04-0.35); Eosinophils % (A) 0 %; HCT 31.1 % (37.2-46.3); HGB 10.3 g/dL (12.0-15.0); Lymphocytes # (A) 0.88 X 10*3/uL (0.90-5.00); Lymphocytes % (A) 7.9 %; MCH 29.5 pg (27.0-32.0); MCHC 33.1 g/dL (32.0-37.0); MCV 89.1 FL (80.0-97.0); Mean Platelet Volume 10.1 FL (9.5-12.2); Monocytes # (A) 0.59 X 10*3/uL (0.20-1.00); Monocytes % (A) 5.3 %; NRBC Per 100 WBC 0 X 10*3/uL (0.00-0.01); Neutrophils # (A) 9.59 X 10*3/uL (1.80-7.70); Platelet Count 257 X 10*3/uL (140-440); RBC 3.49 X 10*6/uL (4.10-5.20); RDW 13.7 % (11.5-14.5); WBC 11.15 X 10*3/uL (4.50-10.00)
[2023-12-01 08:57] LABS: BUN/Creat Ratio 17.17 Ratio (12.00-20.00); Blood Urea Nitrogen 10.3 mg/dL (9.0-27.0); Calcium 8.7 mg/dL (8.7-10.3); Carbon Dioxide 24.6 mmol/L (21.6-31.8); Chloride 106 mmol/L (96-109); Glucose 124 mg/dL (70-110); Potassium 3.9 mmol/L (3.5-5.5); Sodium 142 mmol/L (135-145)
--- NOTE | 2023-12-01 10:09 | P.PN ---
Subjective Progress Note Date: 12/01/23 Principal diagnosis: Lumbar spinal stenosis due to adjacent segment disease after fusion procedure (Acute) Lumbar adjacent segment disease with spondylolisthesis (Acute) Adjacent segment disease of lumbar spine with history of fusion procedure (Acute) Lumbar spinal stenosis (Acute) Radiculopathy with lower extremity symptoms (Acute) Epidural lipomatosis (Acute) Lumbar spondylosis with myelopathy (Acute) Patient was seen at bedside this morning lying in semirecumbent position with dressing and drain in place over lumbar spine. Patient says her pain has been well-controlled with oral medication and surgery yesterday. She says she did get up with therapy this morning and walked down the hallway with brace on. Patient says she has urinated since Harris was removed this morning. Patient is eager and looking forward to going home soon. Drain had about 100 cc serosanguineous output overnight. Maintain drain at this time. Patient says she has not had a bowel yet, however, patient says she has been passing gas. Patient denies chest pain, fever, shortness of breath, nausea, vomiting, change in vision, loss of bowel/bladder control. Objective - Vital Signs Vital signs: Vital Signs Temp 98.7 F 12/01/23 07:10 Pulse 71 12/01/23 07:10 Resp 17 12/01/23 07:10 BP 95/57 12/01/23 07:10 Pulse Ox 93 L 12/01/23 07:10 FiO2 Intake & Output 11/30/23 12/01/23 12/01/23 18:59 06:59 18:59 Intake Total 3522 Output Total 2300 1680 Balance 1222 -1680 Weight 77.8 kg Intake: IV 3402 Oral 120 Output: Drainage 20 80 Back 20 80 Urine 2030 1600 Uretheral (Harris) 300 Estimated Blood Loss 250 Other: Voiding Method Indwelling Catheter Indwelling Catheter - Exam Dressing appears to be clean, dry, intact. Drain in place. 100 cc serosanguineous output in drain overnight. Maintain drain to full suction at this time. Sensation is equal, symmetric, bilateral intact throughout the upper and lower extremities on exam. There is some generalized fair amount of tenderness to palpation diffusely throughout the lumbar spine near incision. Nontender to palpation throughout rest of exam. Patient does have full range of motion throughout bilateral upper extremities on exam. There is some limited range of motion in the bilateral hips in flexion's extension secondary referred pain stiffness to the low back. Patient has full range of motion throughout bilateral knees in flexion/extension and bilateral ankles and dorsi/plantarflexion. 5/5 in all major motor groups in bilateral upper extremities. 4/5 in bilateral ankles and EHL/FHL. 4+/5 in resisted bilateral kn ee flexion and extension and bilateral hip flexion/extension. Radial pulse intact, 2+ bilaterally. Cap refill under 3 seconds in digits of upper extremities. Negative Homans bilaterally. Negative clonus bilaterally. Negative Alana bilaterally. - Labs CBC & Chem 7: 12/01/23 03:34 12/01/23 03:34 Labs: Abnormal Lab Results - Last 24 Hours (Table) 12/01/23 12/01/23 Range/Units 03:34 03:34 WBC 11.15 H (4.50-10.00) X 10*3/uL RBC 3.49 L (4.10-5.20) X 10*6/uL Hgb 10.3 L (12.0-15.0) g/dL Hct 31.1 L (37.2-46.3) % Immature Gran # 0.08 H (0.00-0.04) X 10*3/uL Neutrophils # 9.59 H (1.80-7.70) X 10*3/uL Lymphocytes # 0.88 L (0.90-5.00) X 10*3/uL Eosinophils # 0 L (0.04-0.35) X 10*3/uL Glucose 124 H (70-110) mg/dL Assessment and Plan Assessment: Lumbar spinal stenosis due to adjacent segment disease after fusion procedure (Acute) Lumbar adjacent segment disease with spondylolisthesis (Acute) Adjacent segment disease of lumbar spine with history of fusion procedure (Acute) Lumbar spinal stenosis (Acute) Radiculopathy with lower extremity symptoms (Acute) Epidural lipomatosis (Acute) Lumbar spondylosis with myelopathy (Acute) -Postop day 1 status post revision L3-L5 posterolateral interbody fusion Plan: Lumbar spinal stenosis due to adjacent segment disease after fusion procedure;Darling mbar adjacent segment disease with spondylolisthesis; Adjacent segment disease of lumbar spine with history of fusion procedure; Lumbar spinal stenosis; Radiculopathy with lower extremity symptom; Epidural lipomatosis; Lumbar spondylosis with myelopathy -surgery performed yesterday, Thursday, 4revision L3-L5 posterior lateral interbody fusion. Patient stable at bedside this morning with dressing and drain in place. Drain had 100 cc serosanguineous output overnight. Patient did do well with PT/OT this morning. At this time we will maintain dressing and drain. Keep drain to full suction at this time. Plan for dressing change and drain to be removed tomorrow morning. Pain medication as needed. Brace on while up and about. Likely discharge home tomorrow with home care. 2. Appreciate medical management 3. Pain management -Tylenol; Cosby; Flexeril 4. DVT prophylaxis -GIO hose; SCDs 5. GI prophylaxis -senna; milk of mag 6. PT/OT -weightbearing as tolerated with walker and brace on while up and about 7. Encourage incentive spirometer use 8. Discharge planning -likely discharge home tomorrow with home care Time with Patient: Less than 30
[2023-12-01] MEDS: SODIUM FERRIC GLUCONAT-SUCROSE 125 MG in SODIUM CHLORIDE 0.9% 100 ML IVPB SCH (12:26)
--- NOTE | 2023-12-01 17:52 | P.PN ---
Progress Note - Text Progress Note Date: 12/01/23 Chief Complaint Lumbar surgery - History of Present Illness This is a pleasant 57-year-old patient who follows with Dr. Aguilera. Chronic stable medical conditions include 1 episode of atrial fibrillation in the remote past, patient was on mounjaro for diabetes. For some insurance reason this was not continued. He did lose weight. Accu-Cheks have been better. She got diarrhea with metformin so could not take the same. Currently diet controlled. Hypothyroid. Osteoarthritis. She has had previous lumbar surgery by Dr. Arias. Symptoms have been getting worse increasing pain with radiculopathy to lower extremity. Including fall. Patient has undergone surgery for the same. Hemovac in place. Harris catheter. Patient daughter at the bedside visiting. November 30: Patient up to the bathroom. Did walk in the hallway. Harris catheter discontinued. Hemovac remains in place. Drop in hemoglobin. IV Ferrlecit ordered. Blood pressure running on the lower side. Propranolol that she uses for migraine prophylaxis cut back to 120 mg. Getting IV fluids. Eating well. Otherwise feels well That Active Medications Acetaminophen (Acetaminophen Tab 325 Mg Tab) 650 mg PO Q6HR [facility] Stop: 12/30/23 11:59 Last Admin: 12/01/23 17:39 Dose: 650 mg Hydrocodone Bitart/Acetaminophen (Hydrocodone/Apap 10-325mg 1 Each Tab) 1 each PO Q4H PRN PRN Reason: Pain Scale 7 - 10 Stop: 12/30/23 11:01 Last Admin: 12/01/23 08:37 Dose: 1 each Hydrocodone Bitart/Acetaminophen (Hydrocodone/Apap 7.5-325mg 1 Each Tab) 1 each PO Q6HR PRN PRN Reason: Pain Amitriptyline HCl (Amitriptyline Hcl 25 Mg Tab) 25 mg PO HS [facility] Last Admin: 11/30/23 21:35 Dose: 25 mg Ascorbic Acid (Ascorbic Acid 500 Mg Tab) 1,000 mg PO DAILY [facility] Last Admin: 12/01/23 08:37 Dose: 1,000 mg Cholecalciferol (Cholecalciferol 25 Mcg (1000 Iu) Tablet) 25 mcg PO DAILY [facility] Last Admin: 12/01/23 08:37 Dose: 25 mcg Cyclobenzaprine HCl (Cyclobenzaprine 5 Mg Tab) 5 mg PO TID PRN PRN Reason: Muscle Spasm Stop: 12/30/23 11:01 Last Admin: 12/01/23 05:18 Dose: 5 mg Hydromorphone HCl (Hydromorphone 0.5 Mg/0.5 Ml Syringe) 0.5 mg IVP Q3HR PRN PRN Reason: Pain Scale 4 - 6 Stop: 12/30/23 11:01 Last Admin: 11/30/23 15:15 Dose: 0.5 mg Hydromorphone HCl (Hydromorphone 1 Mg/Ml 1 Ml Syringe) 1 mg IVP Q3HR PRN PRN Reason: Pain Scale of 7 - 10 Stop: 12/30/23 11:01 Last Admin: 12/01/23 16:20 Dose: 1 mg Sodium Chloride (Saline 0.9%) 1,000 mls @ 75 mls/hr IV .[id number] [facility] Last Admin: 12/01/23 08:39 Dose: Not Given Ferric Sodium Gluconate 125 mg (/ Sodium Chloride) 110 mls @ 100 mls/hr IVPB DAILY [facility] Stop: 12/02/23 10:05 Last Admin: 12/01/23 12:26 Dose: 100 mls/hr Magnesium Hydroxide (Magnesium Hydroxide 2,400 Mg/30 Ml Cup) 2,400 mg PO DAILY PRN PRN Reason: Constipation Stop: 12/30/23 11:01 Magnesium Oxide (Magnesium Oxide 400 Mg Tab) 400 mg PO DAILY [facility] Last Admin: 12/01/23 08:38 Dose: 400 mg Non-Formulary Medication (Progesterone, Micronized [Progesterone]) 200 mg PO [facility] Last Admin: 11/30/23 22:11 Dose: Not Given Propranolol HCl (Propranolol La 60 Mg Cap.Sa.24h) 120 mg PO [facility] Senna/Docusate Sodium (Sennosides-Docusate Sodium 1 Each Tab) 2 each PO DAILY [facility] Stop: 12/30/23 11:01 Last Admin: 12/01/23 08:38 Dose: 2 each Thyroid (Thyroid, Pork 30 Mg Tab) 60 mg PO QAM [facility] Last Admin: 12/01/23 08:38 Dose: 60 mg Social history: No smoking alcohol. 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 . Physical examination: VITAL SIGNS: 98.2, 68, 17, 102/67, 94% room air GENERAL: Laying in bed, comfortable EYES: Pupils equal. Conjunctiva venita l. HEENT: External appearance of nose and ears normal, oral cavity grossly normal. NECK: JVD not raised; masses not palpable. HEART: First and second heart sounds are normal; no edema. LUNGS: Respiratory rate normal; clear to auscultation. ABDOMEN: Soft, nontender, liver spleen not palpable, no masses palpable. Harris catheter-discontinued PSYCH: Alert and oriented x3; mood and affect venita l. MUSCULOSKELETAL:No Clubbing/cyanosis;muscles-grossly intact. Hemovac at the surgical site. INVESTIGATIONS, reviewed in the clinical context: November 30: White count 11.1 hemoglobin 10.3 platelets 257 potassium 3.9 creatinine 0.6 Previous labs November 11: White count 6.4 hemoglobin 13.3 platelets 303 sodium 141 potassium 4.7. 16.5 creatinine 0.7 LDL 124 Assessment plan: -Lumbar spinal stenosis, radiculopathy etc. Lumbar surgery. More details and surgical notes. Hemovac in place -Acute postprocedure blood loss anemia expected from surgery IV Ferrlecit -Obesity BMI 32.4 Weight loss measures -Essential hypertension and for migraine prophylaxis Decrease propranolol ER 120 mg nightly, as blood pressure running lower side -Hypothyroid [place] Thyroid 60 mg a day -Diabetes mellitus type 2, diet controlled Increase activity. IV Ferrlecit. Cut back propranolol ER. Discussed. Thank you - Past Medical History Past Medical History: Atrial Fibrillation, Diabetes Mellitus, Osteoarthritis (OA), Thyroid Disorder Additional Past Medical History / Comment(s): Hx diverticulitis, migraines, chronic back pain, couple episodes of passing out-thought to be related to low blood sugar, hx. irregular heart rate @times-takes propranolol for, one time episode of a-fib-had testing, no further problems, diet controlled diabetic-c onsidered "pre-diabetic", has daith piercing right ear for migraines History of Any Multi-Drug Resistant Organisms: None Reported Past Surgical History: Back Surgery, Breast Surgery, Cholecystectomy, Ear Surgery, Hysterectomy Additional Past Surgical History / Comment(s): lt breast lumpectomy, PAIN CLINIC PROCEDURES, left ear surg. Past Anesthesia/Blood Transfusion Reactions: Postoperative Nausea & Vomiting (PONV) Past Psychological History: No Psychological Hx Reported Smoking Status: Never smoker Past Alcohol Use History: None Reported Past Drug Use History: None Reported
[2023-12-01] MEDS: PROPRANOLOL LA 60 MG CAP.SA.24H PO SCH (20:30)
[2023-12-02] MEDS: MAGNESIUM HYDROXIDE 2,400 MG/30 ML CUP PO PRN (06:29)
[2023-12-02 07:40] VITALS: BP 137/83; PULSE 72; RESP 18; TEMP 98.3
--- NOTE | 2023-12-02 11:57 | P.PN ---
Subjective Progress Note Date: 12/02/23 Principal diagnosis: 1. L3-4 adjacent segment disease with stenosis and spondylosis 2. Sacroiliitis 3. Low back pain with claudication Patient seen and examined this morning. Patient is sitting up in chair at bedside. Patient reports improvement of her low back pain. Surgical incision to the lumbar spine, edges are well-approximated with marianela intact. Hemovac drain has been removed and new surgical dressing applied. Patient states that she has been ambulating within room and hallway with physical therapy. Patient d oes report that she feels ready for discharge and feels safe going home. LSO brace is at bedside. No acute concerns. Patient is cleared from orthopedic standpoint for discharge. Objective - Vital Signs Vital signs: Vital Signs Temp 98.3 F 12/02/23 07:13 Pulse 72 12/02/23 07:13 Resp 18 12/02/23 07:13 BP 137/83 12/02/23 07:13 Pulse Ox 97 12/02/23 07:13 FiO2 Intake & Output 12/01/23 12/02/23 12/02/23 18:59 06:59 18:59 Output Total 100 Balance -100 Output: Drainage 100 Back 100 Other: Voiding Method Toilet # Voids 3 1 - Exam Physical Examination General: The patient is awake and alert, in no acute distress Skin: Skin is warm and dry with no obvious rashes or lesions. Surgical in cision to the lumbar spine, edges are well-approximated with marianela intact. Hemovac drain has been removed and new surgical dressing applied. Eye: Pupils are equal, round and reactive to light, extra-ocular movements are intact; there is normal conjunctiva bilaterally. Neck: The neck is supple, there is no tenderness and ROM intact. Cardiovascular: There is a regular rate and rhythm. No murmur, rub or gallop is appreciated. Respiratory: Respirations are non-labored, breath sounds are equal. Gastrointestinal: Soft, non-distended, non-tender abdomen. Back: There is no tenderness to palpation in the midline, paralumbar, parathoracic or buttocks region. There is no obvious deformity . Musculoskeletal: ROM limited secondary to pain and stiffness from surgical procedure. Right: Shoulder abduction 5/5, elbow flexors 5/5, wrist dorsiflexors 5/5. finger abductor 5/5, secretary specialist 5/5, hip flexor 4/5, knee flexor 4/5, ankle dorsiflexor 5/5, ankle plantarflexion 5/5 and extensor hallucis 5/5. Left: Shoulder abduction 5/5, elbow flexors 5/5, wrist dorsiflexors 5/5. finger abductor 5/5, secretary specialist 5/5, hip flexor 4/5, knee flexor 4/5, ankle dorsiflexor 5/5, ankle plantarflexion 5/5 and extensor hallucis 5/5. Neurological: CN 2-12 intact. There are no obvious motor or sensory deficits. Movement and coordination equal and intact. Sensory exam to light touch intact C5-T1 and intact from L2-S1. Reflexes 2/4 in bilateral upper and lower extremities. Negative Hoffmans, babinski, and clonus signs. Psychiatric: Cooperative, appropriate mood & affect, normal judgment. - Labs CBC & Chem 7: 12/01/23 03:34 12/01/23 03:34 Labs: Abnormal Lab Results - Last 24 Hours (Table) 12/01/23 12/01/23 Range/Units 03:34 03:34 WBC 11.15 H (4.50-10.00) X 10*3/uL RBC 3.49 L (4.10-5.20) X 10*6/uL Hgb 10.3 L (12.0-15.0) g/dL Hct 31.1 L (37.2-46.3) % Immature Gran # 0.08 H (0.00-0.04) X 10*3/uL Neutrophils # 9.59 H (1.80-7.70) X 10*3/uL Lymphocytes # 0.88 L (0.90-5.00) X 10*3/uL Eosinophils # 0 L (0.04-0.35) X 10*3/uL Glucose 124 H (70-110) mg/dL Assessment and Plan Assessment: Postop day 2: Revision L3-L5 decompression and fusion Plan: -Appreciate service loss control consultant and team management. -Activity: Ambulate QID, OOB all meals, up and about, limit lifting bending twisting to less than 5 lbs. Use walker or cane if needed for stability. -Daily PT/OT, increase ambulation strength and balance. -Brace when up and about, not needed in bed or chair -Pain control: Adequate at this time -Meds: reviewed -GI ppx: senna, Miralax -DVT PPX: TEDS -Hygiene: Shower today. Maintain dressing clean and dry. Meticulous cleaning after BMs away from the incision site -Encourage IS 10x/hr -Dispo: Discharge home today *I reviewed and discussed this case with my attending Dr. Wolf, whom has reviewed this chart and films and is in agreement with assessment and plan of care as outlined above. I have personally seen and examined the patient, performed the documentation and the assessment and plan as written. Number of minutes spent on the visit: 20m
--- NOTE | 2023-12-02 11:59 | P.DS ---
Providers Date of admission: 12/01/23 13:01 Expected date of discharge: 12/02/23 Attending physician: Jim Wolf DO Consults: 11/30/23 11:05 Consult Physician Routine Consulting Provider: Scar Tavarez Reason/Comments: Medical Management s/p revison L3-L5 decompr fusion Do you want consulting provider notified?: Yes Primary care physician: [facility] Course: hospital Course: The patient was evaluated preoperatively and found to have the diagnosis of lumbar spondylosis with stenosis. They underwent appropriate preoperative care and were willing to undergo the intended procedure. They underwent a successful L3-L5 revision decompression and fusion, were recovered appropriately and sent to the floor. While on the floor they worked with physical therapy, occupational therapy and nursing to enhance their recovery experience. Their pain was well controlled through their stay and they were started on appropriate medications, DVT ppx modalities, activity and dietary needs. Daily labs were monitored closely, and transfusions were only used when necessary. Medicine as well as other consulting services have made their input and have helped with our team approach and multidisciplinary care. PT milestones have been met and passed and they have made the recommendation of home for this patient and treating providers agree with this care path. The patient will be discharged home with appropriate medications, instructions and follow-up information and in stable condition. Patient Condition at Discharge: Good Plan - Discharge Summary Discharge Rx Participant: Yes New Discharge Prescriptions: New Magnesium Hydroxide [Milk of Magnesia] 2,400 mg PO DAILY PRN ml PRN Reason: Constipation Sennosides-Docusate Sodium [Senokot-S] 2 each PO DAILY #60 tab HYDROcodone/APAP 10-325MG [[place] 10-325] 1 tab PO Q4-6H PRN #42 tab PRN Reason: Pain cefaDROXiL [Duricef] 500 mg PO Q12HR #10 cap Cyclobenzaprine [Flexeril] 5 mg PO TID PRN #30 tablet PRN Reason: Muscle Spasm Continue Loratadine [Claritin] 10 mg PO HS Amitriptyline HCl 25 mg PO HS Propranolol HCl [Propranolol HCl ER] 160 mg PO HS Acetaminophen [Tylenol Arthritis] 650 mg PO BID PRN PRN Reason: Pain Thyroid, Pork [[place] Thyroid] 60 mg PO QAM Aspirin 81 mg PO DAILY Magnesium 200 mg PO DAILY Ascorbic Acid [Vitamin C] 1,000 mg PO DAILY Progesterone, Micronized [Progesterone] 200 mg PO HS Celecoxib [CeleBREX] 200 capsule PO BID Cholecalciferol [Vitamin D3 (25 Mcg = 1000 Iu)] 25 mcg PO DAILY Discontinued Zinc Gluconate [Zinc] 50 mg PO DAILY No Action Cyclobenzaprine [Flexeril] 5 mg PO HS HYDROcodone/APAP 7.5-325MG [[place] 7.5-325] 1 tab PO Q6HR PRN PRN Reason: Pain Discharge Medication List Amitriptyline HCl 25 mg PO HS 06/28/15 [History] Loratadine [Claritin] 10 mg PO HS 06/28/15 [History] Propranolol HCl [Propranolol HCl ER] 160 mg PO HS 06/28/15 [History] Acetaminophen [Tylenol Arthritis] 650 mg PO BID PRN 12/09/16 [History] Thyroid, Pork [[place] Thyroid] 60 mg PO QAM 10/24/19 [History] Aspirin 81 mg PO DAILY 02/08/21 [History] Celecoxib [CeleBREX] 200 capsule PO BID 07/23/23 [History] Cyclobenzaprine [Flexeril] 5 mg PO HS 07/23/23 [History] Ascorbic Acid [Vitamin C] 1,000 mg PO DAILY 11/27/23 [History] Cholecalciferol [Vitamin D3 (25 Mcg = 1000 Iu)] 25 mcg PO DAILY 11/27/23 [History] HYDROcodone/APAP 7.5-325MG [[place] 7.5-325] 1 tab PO Q6HR PRN 11/27/23 [History] Magnesium 200 mg PO DAILY 11/27/23 [History] Progesterone, Micronized [Progesterone] 200 mg PO HS 11/27/23 [History] Cyclobenzaprine [Flexeril] 5 mg PO TID PRN #30 tablet 12/02/23 [Rx] HYDROcodone/APAP 10-325MG [[place] 10-325] 1 tab PO Q4-6H PRN #42 tab 12/02/23 [Rx] Magnesium Hydroxide [Milk of Magnesia] 2,400 mg PO DAILY PRN ml 12/02/23 [Rx] Sennosides-Docusate Sodium [Senokot-S] 2 each PO DAILY #60 tab 12/02/23 [Rx] cefaDROXiL [Duricef] 500 mg PO Q12HR #10 cap 12/02/23 [Rx] Follow up Appointment(s)/Referral(s): Amadeo Aguilera DO [Primary Care Provider] - 1 Week (office will call with appointment time) [facility] [NON-STAFF] - As Needed (walker) Jim Wolf DO [Doctor of Osteopathic Medicine] - 12/18/23 8:45 am Activity/Diet/Wound Care/Special Instructions: Spine Discharge and Recovery Instructions Date of Surgery: 11/30/23 Diagnosis: Lumbar spondylosis Procedure: Revision L3-L5 decompression and fusion Medications: See medication list All medication refills should be obtained through your primary care doctor or your clinic spine surgeon. Please discuss prescription refills at your follow up appointment. Do not call the hospital for medication refills. Activity: Encourage ambulation with assist of walker, Up and about 6-8x daily PT/OT daily work on balance, strength and mobility Up in chair with all meals Shower daily Brace: Use brace when up and about, do not wear in bed or shower Dressing: Leave your dressing in place for a total of 3 days post operatively. Then you may remove your dressing and leave open to air. Keep the area clean and if not able to keep area clean, then cover with sterile gauze and tape. Showering: You may shower 3 days after your procedure allowing soap and water to run over incision. Do not scrub. Do not soak. Blot dry. Follow up: Please confirm a follow up appointment with your surgeon 2 weeks post operatively. Please make an appointment to follow up with your PCP in 1-2 weeks after surgery for evaluation `3 phase, 3-week plan POST OP WEEKS 1-3 1. Lifting/carrying/pushing/pulling limited to less than 5 pounds. 2. Do not sit for longer than 15 minutes at one time. Get up and walk around. Prolonged sitting is NOT advised. If you lay down, see if you can tolerate laying down on you front (belly side) 3. Walk for periods of 15 minutes = 1 mile but no longer; do it multiple times times each day. 4. Ice your low back after activity. POST OP WEEKS 3-6 1. Lifting limited to less than 20 pounds. 2. Do not sit for longer than 30 minutes at a time. Frequently change positions. Use a sit-to stand workstation or take frequent breaks from sitting if you have returned to work. 3. Walk for 30 minutes each day. If possible, do these three or more times a day POST OP WEEKS 6+ At your 6-week appointment we will give you a physical therapy referral to focus on a core stabilization and strengthening program. You should also work on leg & buttock strengthening, hamstring & quadriceps stretching, and continue a low impact aerobic activity program such as swimming, walking, or riding a stationary bicycle. During the initial 6 weeks after your surgery, you are at the highest risk of re-injuring your spine. You should generally avoid BLTs (bending, lifting and twisting combination motions) and follow the above guidelines to reduce the chance of reinjury. You can anticipate post op appointments in our office at approximately 3 weeks and 6 weeks after your surgery. INCISION CARE: If your incision is not draining you do NOT need to cover it with a dressing. Keep your incision clean, dry and intact. In most cases, we apply skin glue, marianela or sutures to the incision at the time of surgery. This will be like a crust or have the appearance of a scab and will fall off in time on its own. The stitches or marianela need to be removed at 3 weeks post op appointment. You may begin to shower 3 days after surgery (this allows the glue to tierney well). However, please avoid scrubbing the incision site or peeling off any of the skin glue. This will ensure optimal healing of your incision. Also, during this time avoid soaking the incision area in water - this includes swimming pools, hot tubs or baths. No ointments, lotions or oils on the incision until your surgeon allows. Leave marianela, sutures or glue in place. Neurological dysfunction that comes on suddenly can also be a sign of a stroke. Below some common symptoms of a stroke are listed: B - balance difficulty such as sudden onset walking or leaning to one side - NEW E - eye problem such as sudden double vision or trouble seeing on one side - NEW F - Facial weakness or numbness on one side - NEW A - Arm or leg weakness or numbness on one side - NEW S - Slurred speech or difficulty with word finding - NEW T - Time is BRAIN! Call 911 as soon as you recognize these symptoms Diet: Consume a regular diet rich in vegetables and lean protein such as chicken or fish. You should consume in a ratio of approximately 20% fats|40% carbohydrates|40%protein. Vegetables, sweet potatoes, brown rice or quinoa are examples of good carbohydrates. Chips, white bread, cookies and sweets/sugar are examples of bad carbohydrates. Limit your bad carbs, go wild with good carbs. "Life's Simple 7" Guidelines as per [place] [employer] These will help you reclaim your life after surgery and game farm helper in your recovery, keeping in mind your restrictions. (1) Get Active. Physical activity can help people lose weight, control high blood pressure and cholesterol, feel emotionally better, and sleep better. (2) Control Cholesterol. Avoid a diet high in saturated fat, trans fat, & cholesterol. Limit whole milk & cream, ice cream, butter, egg yolks, processed meats (like sausage and hot dogs), and fatty meats. Choose healthy foods that are low in saturated fat, trans fat and cholesterol which include: Fruits and vegetables, fiber rich grain products (like whole grain pasta and brown rice), lean meat such as chicken, fish, nuts, seeds, and legumes. (3) Eat Better. Eat small portions. Shop at the grocery with a list and do not stray from it. Tips for a healthy diet include: Limit sodium intake to less than 1500mg daily, avoid prepackaged, processed, and fast foods, choose a diet rich in fruits, vegetables, and whole grain, high fiber foods, and limit saturated & cholesterol in your diet. (4) Manage Blood Pressure. If you have high blood pressure, you should have a cuff at home so that you can check your blood pressure regularly. Be sure you have a good cuff. An arm one is generally better than a wrist one. Bring the cuff to a doctor's appointment to validate that the measurements that your cuff are taking are accurate. Take your blood pressure twice daily when you are sitting down and relaxing. Record the numbers in a log and bring this log with you to your doctors' appointments. (5) Lose Weight if your BMI is above 25. A healthy BMI is between 19-25. To calculate Your BMI, you may use a Standard BMI Calculator on the NIH BMI website: <www.nhlbi.nih.gov/guidelines/obesity/BMI/bmicalc.htm>. Weigh oneself daily. If you are overweight, set a goal to lose weight. A pound a week loss if needed is a good target. (6) Reduce Blood Sugar. Limit foods and liquids with "added sugars." (Added sugars include sucrose, fructose, glucose, maltose, dextrose, high fructose corn syrup, corn syrup, concentrated fruit juice and honey). (7) Stop Smoking. If you smoke, quitting smoking is one of the best things that you can do for your health. Smoking increases your risk of heart attack, stroke, and peripheral vascular disease, which is a build-up of plaque in your arteries. Please discard all the cigarettes and lighters in your house. Have a plan for what you will do when you have the urge to smoke. Direct and second- hand smoke shortens your life as well as the lives of your family, friends and others around you. For your health and the health of those around you, please consider quitting! Proper Bending Body Mechanics: Maintain a wide stance with one foot slightly in front of the other. Keep your back straight. Bend utilizing the strength in your hips and knees. Do not bend at the waist. Maintain the lifted object at your waist-level close to your body. Avoid lifting weight that causes immediately pain or pain anywhere in the body afterwards. Smoking/Nicotine If there was ever one thing that you could do to increase your overall health, decrease your risk of cardiovascular problems by about 39% the second you make the choice, it is to STOP SMOKING. Your body's most instant gratification is the second you stop smoking. We have all heard the studies, read the articles but it is true, smoking is extremely bad for your overall health, and moreover it is detrimental to your bone health. Nicotine, IN ANY FORM, kills bone cells, prevents your body from healing fractures, and significantly prolongs healing after surgery. In spine surgery specifically, it increases your risk of not healing your bones to create a fusion and increases your risk of having a revision surgery due to this up to 60%. I know it is hard. I know it feels impossible. But there are ways. Take control of your life. We are here to help you through it. And when you are ready, ask us and we can direct you to help if you desire. Use the START Plan to Quit Smoking (please visit the HelpguFonemesh.org website listed below for more information): S = Set a quit date. Choose a date within the next 2 weeks, so you have enough time to prepare without losing your motivation to quit. If you mainly smoke at work, quit on the weekend, so you have a few days to adjust to the change. T = Tell family, friends, and co-workers that you plan to quit. Let your friends and family in on your plan to quit smoking and tell them you need their support and encouragement to stop. Look for a quit clive who wants to stop smoking as well. You can help each other get through the rough times. A = Anticipate and plan for the challenges you'll face while quitting. Most people who begin smoking again do so within the first 3 months. You can h elp yourself make it through by preparing ahead for common challenges, such as nicotine withdrawal and cigarette cravings. R = Remove cigarettes and other tobacco products from your home, car, and work. Throw away all your cigarettes (no emergency pack!), lighters, ashtrays, and matches. Wash your clothes and freshen up anything that smells like smoke. Shampoo your car, clean your drapes and carpet, and steam your furniture. T = Talk to your doctor about getting help to quit. Your doctor can prescribe medication to help with withdrawal and suggest other alternatives. If you can't see a doctor, you can get many products over the counter at your local pharmacy or grocery store, including the nicotine patch, nicotine lozenges, and nicotine gum. Resources for Quitting Smoking: <https://www.[place].gov/documents/[facility]/Quit_Tobacco_Resources_for_patients_313 480_7.pdf> Supplementation: Take recommended dosages of Vitamin D and Calcium to help fortify your bones and help them to heal. See your health maintenance packet for dosages and recommended levels. DVT/VTE prophylaxis: You will be given compression stockings from the hospital. Wear these daily for the first two weeks after surgery. You may take them off at night. You may be prescribed a medication to help thin your blood. Take this as directed. If you are not prescribed this medication, early and frequent ambulation has been shown to be the best prophylaxis to deep vein thrombosis and sequelae related to this event. Discharge Disposition: HOME SELF-CARE
--- NOTE | 2023-12-02 22:18 | P.PN ---
Progress Note - Text Progress Note Date: 12/02/23 Chief Complaint Lumbar surgery - History of Present Illness This is a pleasant 57-year-old patient who follows with Dr. Aguilera. Chronic stable medical conditions include 1 episode of atrial fibrillation in the remote past, patient was on mounjaro for diabetes. For some insurance reason this was not continued. He did lose weight. Accu-Cheks have been better. She got diarrhea with metformin so could not take the same. Currently diet controlled. Hypothyroid. Osteoarthritis. She has had previous lumbar surgery by Dr. Arias. Symptoms have been getting worse increasing pain with radiculopathy to lower extremity. Including fall. Patient has undergone surgery for the same. Hemovac in place. Harris catheter. Patient daughter at the bedside visiting. November 30: Patient up to the bathroom. Did walk in the hallway. Harris catheter discontinued. Hemovac remains in place. Drop in hemoglobin. IV Ferrlecit ordered. Blood pressure running on the lower side. Propranolol that she uses for migraine prophylaxis cut back to 120 mg. Getting IV fluids. Eating well. Otherwise feels well December 01: Up in a chair. Did ambulate. Received IV iron. Discussed. Home dose of propranolol resumed. Medications discussed. Eating fair. Social history: No smoking alcohol. 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 . Physical examination: VITAL SIGNS: 98.3, 72, 18, 137/83, 97% room air GENERAL: Comfortable EYES: Pupils equal. Conjunctiva venita l. HEENT: External appearance of nose and ears normal, oral cavity grossly normal. NECK: JVD not raised; masses not palpable. HEART: First and second heart sounds are normal; no edema. LUNGS: Respiratory rate normal; clear to auscultation. ABDOMEN: Soft, nontender, liver spleen not palpable, no masses palpable. Harris catheter-discontinued PSYCH: Alert and oriented x3; mood and affect venita l. MUSCULOSKELETAL:No Clubbing/cyanosis;muscles-grossly intact. Hemovac at the surgical site. INVESTIGATIONS, reviewed in the clinical context: November 30: White count 11.1 hemoglobin 10.3 platelets 257 potassium 3.9 creatinine 0.6 Previous labs November 11: White count 6.4 hemoglobin 13.3 platelets 303 sodium 141 potassium 4.7. 16.5 creatinine 0.7 LDL 124 Assessment plan: -Lumbar spinal stenosis, radiculopathy etc. Lumbar surgery. More details and surgical notes. Had a Hemovac -Acute postprocedure blood loss anemia expected from surgery IV Ferrlecit given -Obesity BMI 32.4 Weight loss measures -Essential hypertension and for migraine prophylaxis Propranolol -Hypothyroid [place] Thyroid 60 mg a day -Diabetes mellitus type 2, diet controlled Discussed with patient. Questions answered. Follow-up with PCP. Thank you - Past Medical History Past Medical History: Atrial Fibrillation, Diabetes Mellitus, Osteoarthritis (OA), Thyroid Disorder Additional Past Medical History / Comment(s): Hx diverticulitis, migraines, chronic back pain, couple episodes of passing out-thought to be related to low blood sugar, hx. irregular heart rate @times-takes propranolol for, one time episode of a-fib-had testing, no further problems, diet controlled diabetic- considered "pre-diabetic", has daith piercing right ear for migraines History of Any Multi-Drug Resistant Organisms: None Reported Past Surgical History: Back Surgery, Breast Surgery, Cholecystectomy, Ear Surgery, Hysterectomy Additional Past Surgical History / Comment(s): lt breast lumpectomy, PAIN CLINIC PROCEDURES, left ear surg. Past Anesthesia/Blood Transfusion Reactions: Postoperative Nausea & Vomiting (PONV) Past Psychological History: No Psychological Hx Reported Smoking Status: Never smoker Past Alcohol Use History: None Reported Past Drug Use History: None Reported
== END 2023-12-02 13:01 | disposition home or self-care (01) ==
LOC: OR 05:44 → 4SSUR 10:49 → OR 12-01 13:01 → 4SSUR 12-01 13:01
PROVIDERS: ADMIT Orthopaedic Surgery; ATTEND Orthopaedic Surgery
DX: M47.16 Other spondylosis with myelopathy, lumbar region (principal); M43.16 Spondylolisthesis, lumbar region; M47.26 Other spondylosis with radiculopathy, lumbar region; M48.062 Spinal stenosis, lumbar region with neurogenic claudication; M46.1 Sacroiliitis, not elsewhere classified; D62 Acute posthemorrhagic anemia; I48.91 Unspecified atrial fibrillation; E03.9 Hypothyroidism, unspecified; I10 Essential (primary) hypertension; E11.9 Type 2 diabetes mellitus without complications; E66.9 Obesity, unspecified; Z68.32 Body mass index [BMI] 32.0-32.9, adult; Z79.82 Long term (current) use of aspirin; Z79.85 Long-term (current) use of injectable non-insulin antidiabetic drugs; Z79.899 Other long term (current) drug therapy
CPT/HCPCS: 96376 ×2; 96361 ×2; 96365; 96366 ×2; 96367; 96375; 97530; 97161; 80048; 85025; 72100; 72131; 22633; 22614; 22842; 22853; 63052; 63053; 61783; G0378 ×2; C1713 ×2; C1734; P9045; J2250; J3370; J0330; J1580; J1100 ×2; J1940; J2710; J0690 ×2; J2405; J2001; J3010; J2916; J1170 ×3; J2704; J2371; J1920; J1596

== ENCOUNTER → 2023-12-14 | Outpatient (CLI) | payer OTHER | END | disposition home or self-care (01) | LOC: LABWHC1 14:22 | PROVIDERS: ATTEND Family Medicine | DX: D50.9 Iron deficiency anemia, unspecified (principal) | CPT/HCPCS: 36415; 80048; 82728; 83540; 83550; 85025 ==

== ENCOUNTER → 2024-01-01 | Outpatient (CLI) | payer OTHER ==
[2024-01-01 19:22] LABS: Basophils # (A) 0.11 X 10*3/uL (0.00-0.10); Basophils % (A) 1.6 %; Eosinophils # (A) 0.23 X 10*3/uL (0.04-0.35); Eosinophils % (A) 3.3 %; HCT 41.1 % (37.2-46.3); HGB 13.3 g/dL (12.0-15.0); Lymphocytes # (A) 2.07 X 10*3/uL (0.90-5.00); Lymphocytes % (A) 29.3 %; MCH 28.8 pg (27.0-32.0); MCHC 32.4 g/dL (32.0-37.0); Mean Platelet Volume 10.3 FL (9.5-12.2); Monocytes # (A) 0.63 X 10*3/uL (0.20-1.00); Monocytes % (A) 8.9 %; NRBC Per 100 WBC 0 X 10*3/uL (0.00-0.01); Neutrophils # (A) 3.95 X 10*3/uL (1.80-7.70); Neutrophils % (A) 55.8 %; Platelet Count 329 X 10*3/uL (140-440); RBC 4.62 X 10*6/uL (4.10-5.20); RBC Morphology Normal (Normal); RDW 13.2 % (11.5-14.5); WBC 7.07 X 10*3/uL (4.50-10.00)
== END | disposition home or self-care (01) ==
LOC: LABWHC1 12:20
PROVIDERS: ATTEND Family Medicine
DX: D64.9 Anemia, unspecified (principal)
CPT/HCPCS: 36415; 85025

== ENCOUNTER → 2024-04-25 | Outpatient (CLI) | payer OTHER ==
[2024-04-25 15:14] LABS: Basophils # (A) 0.06 X 10*3/uL (0.00-0.10); Basophils % (A) 0.9 %; Eosinophils # (A) 0.17 X 10*3/uL (0.04-0.35); Eosinophils % (A) 2.5 %; HCT 43.6 % (37.2-46.3); HGB 13.9 g/dL (12.0-15.0); Lymphocytes # (A) 2.28 X 10*3/uL (0.90-5.00); Lymphocytes % (A) 33.9 %; MCH 27.9 pg (27.0-32.0); MCHC 31.9 g/dL (32.0-37.0); MCV 87.6 FL (80.0-97.0); Mean Platelet Volume 9.9 FL (9.5-12.2); Monocytes # (A) 0.58 X 10*3/uL (0.20-1.00); Monocytes % (A) 8.6 %; NRBC Per 100 WBC 0 X 10*3/uL (0.00-0.01); Neutrophils # (A) 3.56 X 10*3/uL (1.80-7.70); Neutrophils % (A) 53.1 %; Platelet Count 398 X 10*3/uL (140-440); RBC 4.98 X 10*6/uL (4.10-5.20); RDW 13.6 % (11.5-14.5); WBC 6.72 X 10*3/uL (4.50-10.00)
[2024-04-25 15:56] LABS: ALT 15 U/L (8-44); AST 15 U/L (13-35); BUN/Creat Ratio 36.83 Ratio (12.00-20.00); Blood Urea Nitrogen 22.1 mg/dL (9.0-27.0); Calcium 9.8 mg/dL (8.7-10.3); Carbon Dioxide 26.8 mmol/L (21.6-31.8); Chloride 102 mmol/L (96-109); Glucose 116 mg/dL (70-110); Potassium 5.2 mmol/L (3.5-5.5); Sodium 140 mmol/L (135-145); T4, Free (Free Thyroxine) 1.05 ng/dL (0.80-1.80)
== END | disposition home or self-care (01) ==
LOC: LABWHC1 09:55
PROVIDERS: ATTEND Orthopaedic Surgery
DX: E03.9 Hypothyroidism, unspecified (principal); E78.00 Pure hypercholesterolemia, unspecified; E66.9 Obesity, unspecified
CPT/HCPCS: 36415; 80048; 82306; 83036; 84439; 84443; 84450; 84460; 85025

== ENCOUNTER → 2024-08-29 | Outpatient (CLI) | payer OTHER ==
--- NOTE | 2024-08-29 11:21 | MM ---
Reason for Exam: Screening (asymptomatic). Last mammogram was performed 1 year(s) and 3 month(s) ago. Patient History: Menarche at age 11. First Full-Term at age 21. Hysterectomy at age 38. Postmenopausal. Patient tested for BRCA1 outcome was negative. Patient tested for BRCA2 outcome was negative. Patient used Hormonal Contraceptives for 16 years. Excisional Biopsy on the Left side. Paternal aunt had breast cancer, age 3. Maternal aunt had breast cancer, age 39. Niece had breast cancer under age 50. Sister had breast cancer. Sister had breast cancer. Mother had breast cancer. Daughter had breast cancer, age 37. Risk Values: Amy 5 year model risk: 7.0%. NCI Lifetime model risk: 34.3%. Prior Study Comparison: 11/04/2019 Bilateral Screening Mammogram, [facility]. 11/05/2020 Bilateral Screening Mammogram, [facility]. 05/12/2023 Bilateral MG 3D screening mammo w/cad, [facility]. Tissue Density: The breasts are heterogeneously dense, which may obscure small masses. Findings: Analyzed By CAD. There are a few scattered tiny benign-appearing round calcifications bilaterally redemonstrated. Benign-appearing bilateral axillary lymph nodes are redemonstrated. There is no suspicious group of microcalcifications or new suspicious mass in either breast. Overall Assessment: Benign, BI-RAD 2 Management: Screening Mammogram of both breasts in 1 year. . Patient should continue monthly self-breast exams. A clinical breast exam by your physician is recommended on an annual basis. This exam should not preclude additional follow-up of suspicious palpable abnormalities. Note on Amy scores and lifetime risk: 1. A Amy score greater than 3% is considered moderate risk. If this is the case, consider specialist referral to assess eligibility for a risk reducing agent. 2. If overall lifetime risk for the development of breast cancer is 20% or higher, the patient may qualify for future screening with alternating mammogram and breast MRI. [facility], , 08/29/2024 11:17 AM. Electronically signed and approved by: Itz Ivy M.D.
== END | disposition home or self-care (01) ==
LOC: RADMAMWWP 08:42
PROVIDERS: ATTEND Obstetrics & Gynecology
DX: Z12.31 Encounter for screening mammogram for malignant neoplasm of breast (principal); R92.333 Mammographic heterogeneous density, bilateral breasts; Z78.0 Asymptomatic menopausal state; Z80.3 Family history of malignant neoplasm of breast; Z92.0 Personal history of contraception
CPT/HCPCS: 77063; 77067